=== PATIENT | female | born 1960 | race Caucasian/White ===

== ENCOUNTER 2020-03-29 09:28 | Emergency (ER) | payer MEDICARE, OTHER ==
[~2020-03-29] VITALS: Ht 147.3 cm; Wt 77.3 kg
[~2020-03-29 09:28] MED LIST: ACET65TA; ADVAIR; ALBUTEROL INH; ALBUTEROL LIQ NEB; ALLO300T; ALLO300T OR; AMIT10TA2; AMIT10TA2 OR; AMIT50TA2 OR; ATRO1SOL13 INH; CLARINEX; CLARINEX OR; COLA100C2; COLA100C2 OR; COMBVENT; CRES20TA; CRES20TA OR; DARV100T; DEMA10TA OR; Enbrel SC; FLEXERIL; FLEXERIL PO; Fleet Enema PR; HYDR4TAB; HYDR4TAB OR; LEVA500T OR; LEVO100T OR; LEVO150T OR; LEVO25TA2; LEVO2TA; LEVO2TA OR; LYRI75CA OR; Lortab PO; MAGN500T2; METO5TAB2; MILKSUS OR; MORP20SO OR; MORP30SU OR; MORPHINE PUMP SC; MS C15TA5; MS C30TA2; MS C30TA2 OR; NEUR100C OR; NEUR300C; NEUR300C OR; NITR0.4S SL; OMEP20TA7 OR; OXYGEN; PERC5TAB8 OR; PERC7.5T8 PO; POTA20TA2 OR; PRED10TA2 OR; PRED20TA OR; PROT1TAB2; PROT1TAB2 OR; SING10TA31; SING10TA31 OR; SPIR1CAP; SYMB80AE IN; SYMB80AE INH; SYNT125T; TIZA4TAB; TIZA4TAB OR; TRAM50TA2 OR; TUMS500C OR; VIBR100C OR; VICO5TAB; VICO5TAB OR; VIT D 2000; VIT D 2000 OR; VITAMIN D; ZETI10TA; ZETI10TA OR
[2020-03-29] MEDS ORDERED: HYDR4TAB PO (09:36)
[2020-03-29] MEDS ORDERED: OXYC-141 (09:36)
[2020-03-29 10:28] LABS: BASO # 0.1 10^3/uL (0.0-0.2); BASO % 1.1 % (0.0-1.0); EOS # 0.6 10^3/uL (0.0-0.5); EOS % 6.6 % (0.0-3.0); HEMATOCRIT 44.3 % (36.0-47.0); LYMPH # 2.5 10^3/uL (1.5-5.0); LYMPH % 28.2 % (24.0-44.0); MEAN CORPUSCULAR HGB CONC 31.6 g/dl (32.0-36.5); MEAN CORPUSCULAR VOLUME 101.4 fl (80.0-96.0); MONO # 0.5 10^3/uL (0.0-0.8); MONO % 5.4 % (0.0-5.0); NEUTROPHILS # 5.2 10^3/uL (1.5-8.5); NEUTROPHILS % 58.4 % (36.0-66.0); PLATELET COUNT, AUTOMATED 320 10^3/uL (150-450); RED BLOOD COUNT 4.37 10^6/uL (4.00-5.40); WHITE BLOOD COUNT 8.9 10^3/uL (4.0-10.0)
[2020-03-29 10:58] LABS: ERYTHROCYTE SEDIMENTATION RATE 21 mm/hr (0-30)
--- NOTE | 2020-03-29 11:50 | REP ---
CT LUMBAR SPINE WITHOUT CONTRAST: HISTORY: Moderate to severe vertebral tenderness. History of ankylosing spondylitis. CT FINDINGS: Lumbar vertebral body heights are preserved. Alignment is normal. No fracture or collapse is seen. Pedicles, posterior elements and transverse process sees appear intact. There are mild degenerative spondylosis changes. No sacral fracture is seen. There are retroperitoneal surgical clips post right nephrectomy. The gallbladder is surgically absent as well. Vascular calcification is seen in a normal caliber aorta. IMPRESSION: No fracture seen. Mild degenerative changes. Vascular calcification. Post right nephrectomy and cholecystectomy. Electronically Signed by Alphonse Pablo MD 03/29/2020 02:56 P
[2020-03-29 12:15] VITALS: BP 117/56
== END 2020-03-29 12:17 | disposition home or self-care (01) ==
LOC: M ED 09:28
DX: M47.816 Spondylosis without myelopathy or radiculopathy, lumbar region (principal); M51.36 Other intervertebral disc degeneration, lumbar region; K58.9 Irritable bowel syndrome, unspecified; I10 Essential (primary) hypertension; E78.5 Hyperlipidemia, unspecified; J44.9 Chronic obstructive pulmonary disease, unspecified; Z79.01 Long term (current) use of anticoagulants; Z79.51 Long term (current) use of inhaled steroids; Z79.891 Long term (current) use of opiate analgesic; Z79.899 Other long term (current) drug therapy; Z86.79 Personal history of other diseases of the circulatory system; Z88.6 Allergy status to analgesic agent; Z88.8 Allergy status to other drugs, medicaments and biological substances; Z90.5 Acquired absence of kidney; Z91.048 Other nonmedicinal substance allergy status

== ENCOUNTER 2020-04-01 08:37 | Emergency (ER) | payer MEDICARE, OTHER ==
[~2020-04-01] VITALS: Ht 147.3 cm; Wt 77.3 kg
[2020-04-01 08:37] VITALS: BP 133/62
[~2020-04-01 08:37] MED LIST changes: +HYDR4TAB PO; +OXYC-141
[2020-04-01] MEDS ORDERED: OMEP-221 (08:49)
[2020-04-01] MEDS ORDERED: COSE1INJ3 (08:49)
[2020-04-01] MEDS ORDERED: LEVO100T5 (08:49)
[2020-04-01] MEDS ORDERED: GABA600T4 (08:49)
[2020-04-01] MEDS ORDERED: ATOR1TAB19 (08:49)
[2020-04-01] MEDS ORDERED: HYDROmorphone 2 MG TAB PO ONE (10:00)
--- NOTE | 2020-04-01 14:47 | REP ---
MRI LUMBAR SPINE: 04/01/2020 INDICATION: Lumbar radiculopathy. COMPARISON: 05/25/2010. FINDINGS: Vertebral body alignment is anatomic. Mild disc desiccation is present throughout most pronounced at L5-S1. Focal fatty marrow versus interosseous hemangioma is noted at L1. The visualized cord is unremarkable. No significant paraspinal soft tissue abnormalities are present. Mild diffuse disc bulging is present at multiple levels most pronounced at L4-5 and L5-S1. No focal disc herniations are present. There are no areas of significant spinal canal/neural foraminal narrowing. IMPRESSION: No focal disc herniations or areas of significant spinal canal/neural foraminal narrowing. Unreviewed
== END 2020-04-01 13:00 | disposition left against medical advice (07) ==
LOC: M ED 08:37
DX: M79.605 Pain in left leg (principal); Z53.20 Procedure and treatment not carried out because of patient's decision for unspecified reasons

== ENCOUNTER → 2020-08-10 | Outpatient (CLI) | payer MEDICARE ==
[~2020-08-10] MED LIST changes: +ATOR1TAB19; +COSE1INJ3; +GABA600T4; +LEVO100T5; +OMEP-221
--- NOTE | 2020-08-14 01:27 | ECWPNPC ---
PATIENT NAME: JOANNE REYES : 1960 GENDER: FEMALE VISIT DATE: 08/10/2020 DISCHARGE DATE: 08/10/20 09 VISIT LOCKED DATE TIME: PHYSICIAN: BERNY TORRES RESOURCE: BERNY TORRES REASON FOR APPOINTMENT 1. BACK/FIBROMYALGIA HISTORY OF PRESENT ILLNESS DEPRESSION SCREENING: PHQ-2 (2015 EDITION) LITTLE INTEREST OR PLEASURE IN DOING THINGS?NOT AT ALL FEELING DOWN, DEPRESSED, OR HOPELESS?NOT AT ALL TOTAL SCORE0 GENERAL: 60-YEAR-OLD FEMALE REFERRED BY [facility] TO EVALUATE FOR CHRONIC LOW BACK PAIN AND LEFT LEG PAIN WITH HISTORY OF MULTIPLE COMORBIDITIES REQUIRING CHRONIC OPIOID THERAPY. SHE CURRENTLY IS FOLLOWING WITH PAIN MANAGEMENT IN [place]. SHE HAS RELOCATED TO [place] AND WOULD LIKE TO FIND MANAGEMENT OF HER PAIN MEDICATIONS CLOSE TO HOME. SHE IS WHEELCHAIR DEPENDENT. SHE IS STATUS POST RIGHT BKA. HAS BEEN ON CHRONIC NARCOTIC PAIN MEDICATIONS FOR SEVERAL YEARS. FINDS CURRENT MEDICATIONS SOMEWHAT EFFECTIVE AT REDUCING PAIN. STATES PRIMARY CARE PROVIDER RECENTLY LOWERED GABAPENTIN DOSAGE FROM 900 MG THREE TIMES A DAY TO 300 MG 3 TIMES A DAY AND SHE IS EXPERIENCING INCREASE IN SHOOTING PAIN IN HER LEFT LEG AND INCREASE IN PHANTOM PAIN IN HER RIGHT STUMP. SHE HAS AN APPOINTMENT TO ESTABLISH CARE WITH PRIMARY CARE LOCALLY IN A FEW WEEKS. I'VE INFORMED HER THAT WE ARE WILLING TO HELP WITH MEDICATION MANAGEMENT LONG HER PRIMARY CARE IS AWARE OF THE SITUATION AND WILLING TO WORK WITH US. SHE WILL TAKE A FORM TO HER PRIMARY CARE APPOINTMENT AT [facility] TO HAVE THEM EVALUATE AND FILL OUT. SHE IS AT HIGH RISK FOR INFECTION WITH HISTORY OF MULTIPLE EPISODES OF SEPSIS WITH HARDWARE FOR KNEE REPLACEMENTS. I FEEL THAT SHE WOULD BE A MEDICATION MANAGEMENT ONLY PATIENT. DENIES BOWEL OR BLADDER INCONTINENCE. DENIES UNSTABLE MEDICAL ISSUES AT THIS POINT.- - -. FALL RISK SCREENING: SCREENING :NO FALLS REPORTED IN THE LAST YEAR 6-8 FALLS PAIN SCREENING: PATIENT HAS A COMPLAINT OF ACUTE OR CHRONIC PAIN :YES LOCATION OF PAIN:LOW BACK, KNEES INTENSITY OF PAIN (SCALE OF 1 TO 10):8 WHAT DOES YOUR PAIN FEEL LIKE:SHARP DURATION:CONTINOUS PAIN IS INCREASED BY:ACTIVITIES PAIN IS DECREASED BY:USE OF PAIN MEDICATIONS HELPS SOME WITH THE PAIN NURSING NOTE: - - -. PAIN CENTER INTAKE QUESTIONS: DO YOU HAVE A HISTORY OF MRSA? :NO 10 YEARS PLUS DO YOU TAKE A BLOOD THINNERS? :NO DO YOU HAVE ANY BLEEDING DISORDERS? :NO ANY NEW NUMBNESS OR WEAKNESS IN YOUR LEGS OR ARMS? :NO ANY PACEMAKER,DEFIBRILLATOR, OR DORSAL COLUMN STIMULATOR? :NO DO YOU HAVE ANY RASHES OR OPEN SORES? :NO ARE YOU ALLERGIC TO IV DYE? :NO ARE YOU DIABETIC? :NO BORDERLINE ANY NEW PROBLEMS WITH YOUR MEDICATIONS? :NO HAVE YOU RECEIVED A VACCINE IN THE PAST 30 DAYS? :NO DO YOU PLAN TO RECEIVE A VACCINE IN THE NEXT 21 DAYS? :NO DO YOU NEED ANY PRESCRIPTION? :NO DO YOU TAKE ANY IMMUNOSUPPRESSIVE MEDICATIONS? :YES CURRENT MEDICATIONS TAKING GABAPENTIN 600 MG TABLET 1 TABLET ORALLY ONCE A DAY TAKING ATORVASTATIN CALCIUM 10 MG TABLET 1 TABLET ORALLY ONCE A DAY TAKING COSENTYX (300 MG DOSE) 150 MG/ML SOLUTION PREFILLED SYRINGE DIRECTED SUBCUTANEOUS TAKING NITROFURANTOIN MACROCRYSTAL 50 MG CAPSULE 1 CAPSULE AT BEDTIME WITH FOOD OR MILK ORALLY ONCE A DAY TAKING OMEPRAZOLE 40 MG CAPSULE DELAYED RELEASE 1 CAPSULE 30 MINUTES BEFORE MORNING MEAL ORALLY ONCE A DAY TAKING ALBUTEROL SULFATE (2.5 MG/3ML) 0.083% NEBULIZATION SOLUTION 3 ML NEEDED INHALATION EVERY 6 HRS TAKING PROLIA 60MG INJECTION TAKING VITAMIN D3 SUPER STRENGTH 50 MCG (2000 UT) TABLET 1 TABLET ORALLY ONCE A DAY TAKING OXYCONTIN 10 MG TABLET ER 12 HOUR ABUSE-DETERRENT 1 TABLET ORALLY EVERY 12 HRS TAKING CHANTIX 1 TAB ORAL TAKING SYNTHROID 100 MCG TABLET 1 TABLET IN THE MORNING ON AN EMPTY STOMACH ORALLY ONCE A DAY MEDICATION LIST REVIEWED AND RECONCILED WITH THE PATIENT PAST MEDICAL HISTORY UTI SKIN CANCER ON FACE COPD HEART MURMER ALLERGIES BAND-AID SURGICAL HISTORY APENDIX RIGHT KIDNEY REMOVED RIGHT LEG REMOVED GAULBLADDER REMOVED KNEE REPLACMENT IN RIGHT LEG X2 FAMILY HISTORY FATHER: ALIVE 85 YRS MOTHER: ALIVE 80 YRS 1 BROTHER(S) , 1 SISTER(S) - HEALTHY. SOCIAL HISTORY GENERAL: TOBACCO USE ARE YOU A:FORMER SMOKER HOW LONG HAS IT BEEN SINCE YOU LAST SMOKED? A WEEK AGO ALCOHOL SCREENING DID YOU HAVE A DRINK CONTAINING ALCOHOL IN THE PAST YEAR?NO POINTS0 INTERPRETATIONNEGATIVE RECREATIONAL DRUG USE DRUG USE?NO CAFFEINE CAFFEINE USE? NONE LEARNING BARRIERS / SPECIAL NEEDS HEARING IMPAIRED?YES SOME HEARING LOSS VISION IMPAIRED?YES GLASSES MARITAL STATUS: .. PAIN CLINIC PFS, CLERGY, PUBLIC HEALTH REFERRALS HAS THE PATIENT BEEN EDUCATED REGARDING HIS/HER PLAN OF CARE?YES HAS THE PATIENT BEEN EDUCATED REGARDING PAIN, THE RISK FOR PAIN, THE IMPORTANCE OF EFFECTIVE PAIN MANAGEMENT, AND THE PAIN ASSESSMENT PROCESS?YES HOSPITALIZATION/MAJOR DIAGNOSTIC PROCEDURE DENIES PAST HOSPITALIZATION REVIEW OF SYSTEMS CONSTITUTIONAL: ANY RECENT FEVER NO . CHILLS NO . WEIGHT CHANGE OF UNKNOWN REASONS NO . GASTROENTEROLOGY: NEW UNEXPLAINABLE CHANGES IN BOWEL CONTROL NO . CONSTIPATION NO . GENITOURINARY: ANY NEW CHANGE IN BLADDER CONTROL? NO . NEUROLOGY: NEW ONSET DIZZINESS OR NEUROLOGICAL CHANGES NOT MENTIONED NO . NEW NUMBNESS OR PAIN PATTERNS NOT MENTIONED AND PERTINENT TO TODAY'S VISIT NO . CARDIOLOGY: NEW CHEST PRESSURE NO . NEW CHEST PAIN NO . RESPIRATORY: UNEXPLAINABLE COUGH NO . NEW SHORTNESS OF BREATH NO . VITAL SIGNS WT 168 LBS, HT 45 IN, BMI 58.32 INDEX, BP 121/64 MM HG, HR 51 /MIN, RR 18 /MIN, TEMP 96.9 F, OXYGEN SAT % 94%, SAFE IN ENV? (Y/N) YES, NA INITIALS AW 0829, REVIEWED BY: LEXIS. EXAMINATION GENERAL EXAMINATION: GENERALNO ACUTE DISTRESS, WELL NOURISHED AND HYDRATED, WHEELCHAIR DEPENDENT. PSYCHAPPROPRIATE MOOD AND AFFECT . HEENT:EOMI, NO SCLERAL ICTERUS,. FACE:UNREMARKABLE. LUNGS:CLEAR TO AUSCULTATION BILATERALLY, NO WHEEZES, RHONCHI, RALES. HEART:NO MURMURS, REGULAR RATE AND RHYTHM. BACK:TENDERNESS TO LIGHT TOUCH ACROSS LOWER BACK. . ASSESSMENTS CHRONIC PRESCRIPTION OPIATE USE - Z79.891 (PRIMARY) SACROILIITIS - M46.1 AVASCULAR NECROSIS - M87.00 TREATMENT CHRONIC PRESCRIPTION OPIATE USE NOTES: PATIENT WILL BRING / OPIOID AGREEMENT FORM TO PRIMARY CARE PROVIDER AT [facility] . PATIENT WOULD BE A MEDICATION MANAGEMENT ONLY PATIENT. SHE IS ON CHRONIC OPIOID THERAPY FOR YEARS AND IS HIGH RISK FOR INFECTION AND INJECTION THERAPY WOULD NOT BE RECOMMENDED. APPEARS STABLE ON CURRENT MEDICATIONS ALTHOUGH SHE MAY BE TOLERANT AND WOULD BE WILLING TO TRY DIFFERENT MEDICATIONS. PROCEDURE CODES FA211 ESTABILISHED PATIENT [facility] FACILITY CHARGE DISPOSITION & COMMUNICATION FOLLOW UP 6 WEEKS (REASON: FOLLOW-UP MEDICATION MANAGEMENT EVALUATE PRIMARY CARE RESPONSE TO / AGREEMENT FOR OPIOIDS) ELECTRONICALLY SIGNED BY MARK OCASIO ON 08/13/2020 AT 03:57 PM EDT DISCLAIMER : THIS IS A VISIT SUMMARY EXTRACTED FROM THE [email or web address] CHART. IT IS NOT A COPY OF THE [email or web address] PROGRESS NOTE. MTDD
== END ==
LOC: M PAIN 08:30
PROVIDERS: ATTEND Nurse Practitioner Family
DX: M46.1 Sacroiliitis, not elsewhere classified (principal); M87.00 Idiopathic aseptic necrosis of unspecified bone; Z99.3 Dependence on wheelchair; Z89.611 Acquired absence of right leg above knee; J44.9 Chronic obstructive pulmonary disease, unspecified; R01.1 Cardiac murmur, unspecified; Z85.828 Personal history of other malignant neoplasm of skin; Z79.891 Long term (current) use of opiate analgesic; Z79.899 Other long term (current) drug therapy; Z87.891 Personal history of nicotine dependence; Z91.048 Other nonmedicinal substance allergy status

== ENCOUNTER → 2020-08-13 | Outpatient (REF) | payer MEDICARE ==
[2020-08-13 19:03] LABS: APPEARANCE, URINE MANUAL TURBID (CLEAR); COLOR, URINE MANUAL BROWN (YELLOW)
[2020-08-13 19:04] LABS: GLUCOSE, URINE (UA) MANUAL NEGATIVE (NEGATIVE); PROTEIN, URINE MANUAL OBSCURED mg/dL (NEGATIVE)
[2020-08-13 19:05] LABS: BILIRUBIN, URINE MANUAL OBSCURED (NEGATIVE); BLOOD URINE MANUAL NEGATIVE (NEGATIVE); KETONE, URINE MANUAL OBSCURED mg/dL (NEGATIVE); LEUKOCYTE ESTERASE, URINE MAN OBSCURED (NEGATIVE); NITRITE, URINE MANUAL OBSCURED (NEGATIVE); UROBILINOGEN, URINE MANUAL OBSCURED mg/dl (NORMAL)
[2020-08-13 19:16] LABS: WBC, URINE TNTC /hpf (0-3)
[2020-08-13 19:18] LABS: SQUAMOUS EPITHELIAL CELL URINE SMALL AMOUNT /hpf (SMALL AMT)
[2020-08-13 19:19] LABS: HYALINE CAST, URINE NONE SEEN /lpf (0-1)
[2020-08-13 19:20] LABS: BACTERIA, URINE NONE SEEN; MUCUS, URINE SMALL AMOUNT (NEGATIVE)
== END ==
LOC: M LAB REF 16:41
PROVIDERS: ATTEND Family Medicine
DX: R31.9 Hematuria, unspecified (principal)

== ENCOUNTER → 2020-09-28 | Outpatient (REF) | payer MEDICARE, MEDICAID ==
[2020-09-28 15:26] LABS: HEMATOCRIT 46.3 % (36.0-47.0); HEMOGLOBIN 14.5 g/dl (12.0-15.5); MEAN CORPUSCULAR HGB CONC 31.3 g/dl (32.0-36.5); MEAN CORPUSCULAR VOLUME 99.1 fl (80.0-96.0); PLATELET COUNT, AUTOMATED 313 10^3/uL (150-450); RED BLOOD COUNT 4.67 10^6/uL (4.00-5.40)
[2020-09-28 15:28] LABS: APPEARANCE, URINE HAZY (CLEAR); BACTERIA, URINE AUTO 1+ (NEGATIVE); BILIRUBIN, URINE AUTO NEGATIVE (NEGATIVE); BLOOD, URINE BLOOD NEGATIVE (NEGATIVE); COLOR, URINE YELLOW (YELLOW); GLUCOSE, URINE (UA) AUTO NEGATIVE (NEGATIVE); KETONE, URINE AUTO NEGATIVE (NEGATIVE); LEUKOCYTE ESTERASE, URINE AUTO NEGATIVE (NEGATIVE); MUCUS, URINE SMALL (NEGATIVE); NITRITE, URINE AUTO NEGATIVE (NEGATIVE); PROTEIN, URINE AUTO NEGATIVE (NEGATIVE); RBC, URINE AUTO 1 /HPF (0-3); SPECIFIC GRAVITY URINE AUTO 1.024 (1.002-1.035); SQUAMOUS EPITHELIAL CELL UR AU 1 /HPF (0-6); WBC, URINE AUTO 1 /HPF (0-3)
[2020-09-28 16:04] LABS: ALBUMIN 3.7 GM/DL (3.2-5.2); ALT/SGPT 17 U/L (12-78); BILIRUBIN,TOTAL 0.3 MG/DL (0.2-1.0); BLOOD UREA NITROGEN 11 MG/DL (7-18); CALCIUM LEVEL 8.8 MG/DL (8.5-10.1); CARBON DIOXIDE LEVEL 31 MEQ/L (21-32); CHLORIDE LEVEL 108 MEQ/L (98-107); CHOLESTEROL LEVEL 302 MG/DL (<200); CHOLESTEROL RISK RATIO 6.711 (<5); CREATININE FOR GFR 0.92 MG/DL (0.55-1.30); FREE T4 0.63 NG/DL (0.76-1.46); GLOMERULAR FILTRATION RATE > 60.0 (>51); GLUCOSE, FASTING 90 MG/DL (70-100); HDL CHOLESTEROL 45 MG/DL (>40); NON-HDL-C 257 MG/DL; POTASSIUM SERUM 4.8 MEQ/L (3.5-5.1); SODIUM LEVEL 139 MEQ/L (136-145); TOTAL PROTEIN 7.1 GM/DL (6.4-8.2); TRIGLYCERIDES LEVEL 521 MG/DL (<150)
[2020-09-28 16:07] LABS: TOTAL 25(OH) VITAMIN D 8.2 NG/ML (30.0-100.0); VITAMIN B12 LEVEL 410 PG/ML
[2020-09-28 17:01] LABS: HEMOGLOBIN A1c 5.5 %
== END ==
LOC: M SFHCPLAZ 12:42
PROVIDERS: ATTEND Physician Assistant
DX: J44.9 Chronic obstructive pulmonary disease, unspecified (principal); N18.30 Chronic kidney disease, stage 3 unspecified; R73.03 Prediabetes; R39.198 Other difficulties with micturition; R10.9 Unspecified abdominal pain; E78.2 Mixed hyperlipidemia; E53.8 Deficiency of other specified B group vitamins; E03.9 Hypothyroidism, unspecified; E55.9 Vitamin D deficiency, unspecified

== ENCOUNTER → 2020-09-28 | Outpatient (CLI) | payer MEDICARE, MEDICAID ==
--- NOTE | 2020-09-28 14:07 | REP ---
INDICATION: R10.9 ACUTE LT FLANK PAIN,R39.198 DIFFICULTY IN URINATION. COMPARISON: Abdomen and pelvis CT dated 05/19/2010. TECHNIQUE: Renal ultrasound. FINDINGS: There is a right nephrectomy for reasons not elaborated on the request more the technologist's note. The left kidney is normal size measuring 11.6 x 3.8 x 5.3 cm. There is no left renal hydronephrosis. There is no left renal calculus. There is no left renal solid mass. There is a left renal upper pole Bosniak type 1 cyst measuring 1.1 x 0.9 x 0.9 cm. Bladder: The bladder is moderately distended. With color Doppler assessment we are unable to identify a left ureteral jet into the bladder. However, there is no hydronephrosis. This may be from dehydration. IMPRESSION: Bosniak type 1 left renal upper pole 1.1 cm cyst. No hydronephrosis or calculus. No solid mass. Right nephrectomy. <Electronically signed by Allen Torres > 09/28/20 [id number]
== END ==
LOC: M WHC 12:19
PROVIDERS: ATTEND Physician Assistant
DX: N28.1 Cyst of kidney, acquired (principal); R39.198 Other difficulties with micturition; R10.9 Unspecified abdominal pain; J44.9 Chronic obstructive pulmonary disease, unspecified; N18.30 Chronic kidney disease, stage 3 unspecified; R73.03 Prediabetes; E78.2 Mixed hyperlipidemia; E53.8 Deficiency of other specified B group vitamins; E03.9 Hypothyroidism, unspecified; E55.9 Vitamin D deficiency, unspecified
CPT/HCPCS: 36415; 76775; 80053; 80061; 81001; 82306; 82607; 82746; 83036; 84439; 84443; 85027; 87086; G0463

== ENCOUNTER → 2020-09-30 | Outpatient (CLI) | payer MEDICARE, MEDICAID ==
--- NOTE | 2020-10-03 23:20 | ECWPNPC ---
PATIENT NAME: JOANNE REYES : 1960 GENDER: FEMALE VISIT DATE: 09/30/2020 DISCHARGE DATE: 09/30/20 1417 VISIT LOCKED DATE TIME: PHYSICIAN: BERNY TORRES PHYSICIAN PAGER NO: ACTIVE RESOURCE: BERNY TORRES REASON FOR APPOINTMENT 1. BACK/FIBROMYALGIA HISTORY OF PRESENT ILLNESS GENERAL: PATIENT IS HERE FOR A FOLLOW-UP AFTER INITIAL EVALUATION. SUFFERS FROM PERSISTENT PHANTOM LIMB PAIN AND CHRONIC LOW BACK PAIN. SHE IS NOT A CANDIDATE FOR INTERVENTIONAL THERAPY. SHE SPOKE WITH HER PRIMARY CARE PROVIDER TO ESTABLISH AAGREEMENT THAT WE WOULD BE WILLING TO PRESCRIBE HER CHRONIC NARCOTIC PAIN MEDICATIONS UNTIL WE FEEL THOUGH HER MEDICATION IS OPTIMIZED AND AT THAT POINT SHE WOULD RETURN FOR CONTINUED CARE THROUGH PRIMARY CARE. PATIENT STATES HER PRIMARY CARE DOCTOR WHO IS IN THE [facility] WAS WILLING TO SIGN THE FORM. WE DON'T HAVE THE FORM TO REVIEW BUT WILL ATTEMPT TO GET THAT TODAY. CURRENTLY USING OXYCONTIN 10 MG TWICE A DAY AND HYDROMORPHONE 4 MG 1 TABLET EVERY 6 HOURS NEEDED FOR SEVERE PAIN EPISODES. FINDS THIS MEDICATION SOMEWHAT HELPFUL AT REDUCING PAIN AND KEEPING HER FUNCTIONAL. DENIES ADVERSE EFFECTS WITH MEDICATIONS. HAS BEEN ON THIS DOSAGE FOR SEVERAL YEARS FOR CHRONIC PAIN. -. FALL RISK SCREENING: SCREENING :TWO OR MORE FALLS WITHOUT INJURY IN THE PAST YEAR PAIN SCREENING: PATIENT HAS A COMPLAINT OF ACUTE OR CHRONIC PAIN :YES LOCATION OF PAIN:BOTH SHOULDERS, LOW BACK, LEFT HIP, RIGHT HIP, KNEES LEFT KNEE INTENSITY OF PAIN (SCALE OF 1 TO 10):8 WHAT DOES YOUR PAIN FEEL LIKE:BURNING, CONTINOUS, SHARP, TENDER, THROBBING, SORE DURATION:CONTINOUS PAIN IS INCREASED BY:ACTIVITIES PAIN IS DECREASED BY:USE OF PAIN MEDICATIONS, OTHERS HEAT NURSING NOTE: -. PAIN CENTER INTAKE QUESTIONS: DO YOU HAVE A HISTORY OF MRSA? :YES URINE DO YOU TAKE A BLOOD THINNERS? :NO DO YOU HAVE ANY BLEEDING DISORDERS? :NO ANY NEW NUMBNESS OR WEAKNESS IN YOUR LEGS OR ARMS? :NO ANY PACEMAKER,DEFIBRILLATOR, OR DORSAL COLUMN STIMULATOR? :NO DO YOU HAVE ANY RASHES OR OPEN SORES? :YES SCABBED AREAS RIGHT UPPER ARM ARE YOU ALLERGIC TO IV DYE? :NO ARE YOU DIABETIC? :YES DIET CONTROLLED ANY NEW PROBLEMS WITH YOUR MEDICATIONS? :NO HAVE YOU RECEIVED A VACCINE IN THE PAST 30 DAYS? :NO DO YOU PLAN TO RECEIVE A VACCINE IN THE NEXT 21 DAYS? :NO DO YOU NEED ANY PRESCRIPTION? :YES NEURONTIN DO YOU TAKE ANY IMMUNOSUPPRESSIVE MEDICATIONS? :YES COSENTYX IS THERE A CHANCE YOU COULD BE ? :NO ARE YOU BREAST FEEDING? :NO CURRENT MEDICATIONS UNKNOWN GABAPENTIN 600 MG TABLET 1 TABLET ORALLY THREE TIMES DAILY UNKNOWN ATORVASTATIN CALCIUM 10 MG TABLET 1 TABLET ORALLY ONCE A DAY UNKNOWN COSENTYX (300 MG DOSE) 150 MG/ML SOLUTION PREFILLED SYRINGE DIRECTED SUBCUTANEOUS MONTHLY UNKNOWN NITROFURANTOIN MACROCRYSTAL 50 MG CAPSULE 1 CAPSULE AT BEDTIME WITH FOOD OR MILK ORALLY ONCE A DAY UNKNOWN OMEPRAZOLE 40 MG CAPSULE DELAYED RELEASE 1 CAPSULE 30 MINUTES BEFORE MORNING MEAL ORALLY ONCE A DAY UNKNOWN ALBUTEROL SULFATE (2.5 MG/3ML) 0.083% NEBULIZATION SOLUTION 3 ML NEEDED INHALATION EVERY 6 HRS UNKNOWN PROLIA 60MG INJECTION EVERY 6 MONTHS UNKNOWN VITAMIN D3 SUPER STRENGTH 50 MCG (2000 UT) TABLET 1 TABLET ORALLY ONCE A DAY UNKNOWN OXYCONTIN 10 MG TABLET ER 12 HOUR ABUSE-DETERRENT 1 TABLET ORALLY EVERY 12 HRS UNKNOWN CHANTIX 1 TAB ORAL BID UNKNOWN SYNTHROID 100 MCG TABLET 1 TABLET IN THE MORNING ON AN EMPTY STOMACH ORALLY ONCE A DAY, NOTES: TAKES 4 DAYS A WEEK MEDICATION LIST REVIEWED AND RECONCILED WITH THE PATIENT PAST MEDICAL HISTORY UTI- CHRONIC, ON DAILY ABX SKIN CANCER ON FACE- BCC COPD HEART MURMUR CKD STAGE II PREDIABETES HYPOTHYROIDISM NICOLE ON CPAP RIGHT ABOVE THE KNEE AMPUTATION DEXA- 04/2018 S/P RIGHT KIDNEY REMOVAL ALLERGIES BAND-AID SURGICAL HISTORY APENDIX RIGHT KIDNEY REMOVED RIGHT LEG REMOVED GAULBLADDER REMOVED KNEE REPLACMENT IN RIGHT LEG X2 FAMILY HISTORY FATHER: ALIVE 85 YRS MOTHER: ALIVE 80 YRS 1 BROTHER(S) , 1 SISTER(S) - HEALTHY. SOCIAL HISTORY GENERAL: TOBACCO USE ARE YOU A:FORMER SMOKER OCCASIONAL CIGARETTE HOW LONG HAS IT BEEN SINCE YOU LAST SMOKED? A WEEK AGO LATEX QUESTIONNAIRE LATEX ALLERGY : HAVE YOU EVER DEVELOPED ANY TYPE OF REACTION AFTER HANDLING LATEX PRODUCTS SUCH RUBBER GLOVES, CONDOMS, DIAPHRAGMS, BALLOONS, SOCKS, OR UNDERWEAR?NO LATEX ALLERGY : HAVE YOU EVER DEVELOPED ANY TYPE OF REACTION DURING OR AFTER DENTAL APPOINTMENT, VAGINAL/RECTAL EXAMINATION, SURGICAL PROCEDURE, OR ANY OTHER EXPOSURE?NO LATEX RISK : HAVE YOU EVER HAD ANY DIFFICULTY BREATHING OR HIVES AFTER EATING OR HANDLING ANY FRUITS, OR VEGETABLES; SUCH KIWI, BANANAS, STONE FRUITS, OR CHESTNUTSNO LATEX RISK : DO YOU HAVE A PREVIOUS PERSONAL HISTORY OF MORE THAN NINE SURGERIES, SPINA BIFIDA, OR REPEATED CATHERIZATIONS? NO LATEX RISK : ARE YOU FREQUENTLY EXPOSED TO LATEX PRODUCTS IN YOUR OCCUPATION?NO DATE ASKED : 09/30/2020 ALCOHOL SCREENING DID YOU HAVE A DRINK CONTAINING ALCOHOL IN THE PAST YEAR?NO POINTS0 INTERPRETATIONNEGATIVE RECREATIONAL DRUG USE DRUG USE?NO CAFFEINE CAFFEINE USE? NONE LANGUAGE LANGUAGES SPOKEN:IRISH EDUCATION LEVEL OF EDUCATION:NOT FINISHED COLLEGE LEARNING BARRIERS / SPECIAL NEEDS HEARING IMPAIRED?YES SOME HEARING LOSS VISION IMPAIRED?YES GLASSES SPECIAL DEVICES?YES :WHEELCHAIR HISTORY OF RIGHT BKA OCCUPATION: UNEMPLOYED. DIET: REGULAR. EXERCISE: NO REGULAR EXERCISE. MARITAL STATUS: .. PAIN CLINIC PFS, CLERGY, PUBLIC HEALTH REFERRALS HAS THE PATIENT BEEN EDUCATED REGARDING HIS/HER PLAN OF CARE?YES HAS THE PATIENT BEEN EDUCATED REGARDING PAIN, THE RISK FOR PAIN, THE IMPORTANCE OF EFFECTIVE PAIN MANAGEMENT, AND THE PAIN ASSESSMENT PROCESS?YES ADVANCE DIRECTIVE ADVANCE DIRECTIVE DISCUSSED WITH PATIENT:YES DAUGHTER LAURA REYES AND GIAN STEWART HOSPITALIZATION/MAJOR DIAGNOSTIC PROCEDURE NO HOSPITALIZATION HISTORY. REVIEW OF SYSTEMS CONSTITUTIONAL: ANY RECENT FEVER NO . CHILLS NO . WEIGHT CHANGE OF UNKNOWN REASONS NO . GASTROENTEROLOGY: NEW UNEXPLAINABLE CHANGES IN BOWEL CONTROL NO . CONSTIPATION NO . GENITOURINARY: ANY NEW CHANGE IN BLADDER CONTROL? NO . NEUROLOGY: NEW ONSET DIZZINESS OR NEUROLOGICAL CHANGES NOT MENTIONED NO . NEW NUMBNESS OR PAIN PATTERNS NOT MENTIONED AND PERTINENT TO TODAY'S VISIT NO . CARDIOLOGY: NEW CHEST PRESSURE NO . NEW CHEST PAIN NO . RESPIRATORY: UNEXPLAINABLE COUGH NO . NEW SHORTNESS OF BREATH NO . VITAL SIGNS WT 160 LBS, HT 45 IN, BMI 55.55 INDEX, BP 120/59 MM HG, HR 58 /MIN, RR 18 /MIN, TEMP 97.6 F, OXYGEN SAT % 95%, SAFE IN ENV? (Y/N) YES, NA INITIALS SC 13:21, REVIEWED BY: KENDRICK RN. EXAMINATION GENERAL EXAMINATION: GENERALAWAKE,ALERT ,PLEASANT . PSYCHAFFECT NORMAL . LUNGS:LUNG WILLIS ARE CLEAR TO AUSCULTATION BILATERALLY. GOOD MOVEMENT OF AIR . HEART:S1, S2 IN A REGULAR RATE AND RHYTHM. NO SIGNIFICANT MURMURS, RUBS OR GALLOPS NOTED . ASSESSMENTS CHRONIC PRESCRIPTION OPIATE USE - Z79.891 (PRIMARY) SACROILIITIS - M46.1 AVASCULAR NECROSIS - M87.00 TREATMENT CHRONIC PRESCRIPTION OPIATE USE REFILL GABAPENTIN CAPSULE, 300 MG, 1 TABLET, ORALLY, THREE TIMES DAILY, 30 DAYS, 90, REFILLS 2 NOTES: NARCOTIC AGREEMENT AND CLINIC POLICY IS REVIEWED. PATIENT AGREES TO COMPLY AND HAS SIGNED A NARCOTIC AGREEMENT WITH US. WE WILL ATTEMPT TO RETRIEVE / AGREEMENT WITH PRIMARY CARE. PATIENT WILL CALL US WHEN SHE HAS 3 OR 4 DAYS LEFT OF HER OXYCONTIN 10 MG TWICE A DAY AND DILAUDID 4 MG EVERY 6 HOURS FOR CHRONIC PAIN. AT THAT POINT WE WILL SEND IN A REFILL. I SENT IN REFILL OF GABAPENTIN 300 MG 3 TIMES A DAY WITH 2 REFILLS. FOLLOW-UP IS SCHEDULED AT PAIN CLINIC IN 2 MONTHS. PROCEDURE CODES FA211 ESTABILISHED PATIENT [facility] CHARGE DISPOSITION & COMMUNICATION FOLLOW UP 2 MONTHS (REASON: MEDICATION MANAGEMENT/URINE TOX) ELECTRONICALLY SIGNED BY MARK OCASIO ON 10/03/2020 AT 04:11 PM EST DISCLAIMER : THIS IS A VISIT SUMMARY EXTRACTED FROM THE [employer] CHART. IT IS NOT A COPY OF THE [employer] PROGRESS NOTE. MARCIE
== END ==
LOC: M PAIN 13:30
PROVIDERS: ATTEND Nurse Practitioner Family
DX: M46.1 Sacroiliitis, not elsewhere classified (principal); G89.29 Other chronic pain; M87.00 Idiopathic aseptic necrosis of unspecified bone; E11.9 Type 2 diabetes mellitus without complications; J44.9 Chronic obstructive pulmonary disease, unspecified; E03.9 Hypothyroidism, unspecified; G47.33 Obstructive sleep apnea (adult) (pediatric); F17.210 Nicotine dependence, cigarettes, uncomplicated; Z86.14 Personal history of Methicillin resistant Staphylococcus aureus infection; Z96.651 Presence of right artificial knee joint; Z91.09 Other allergy status, other than to drugs and biological substances; E66.01 Morbid (severe) obesity due to excess calories; Z68.43 Body mass index [BMI] 50.0-59.9, adult; Z79.891 Long term (current) use of opiate analgesic; Z79.899 Other long term (current) drug therapy

== ENCOUNTER → 2020-12-01 | Outpatient (CLI) | payer MEDICAID, MEDICARE, OTHER ==
--- NOTE | 2020-12-03 05:52 | ECWPNPC ---
PATIENT NAME: JOANNE REYES : 1960 GENDER: FEMALE VISIT DATE: 12/01/2020 DISCHARGE DATE: 12/01/20 1457 VISIT LOCKED DATE TIME: PHYSICIAN: BERNY TORRES PHYSICIAN PAGER NO: ACTIVE RESOURCE: BERNY TORRES REASON FOR APPOINTMENT 1. MEDICATION MANAGEMENT/URINE TOX HISTORY OF PRESENT ILLNESS GENERAL: HERE FOR FOLLOW-UP AND MANAGEMENT/MEDICATION FOR CHRONIC LOW BACK PAIN. DUE TO INSURANCE CONSTRAINTS WE SWITCHED HER FROM OXYCONTIN 10 MG TWICE A DAY TO XTAMPZA 9MG BID. REPORTING AGGRAVATION IN PAIN SINCE SWITCHING TO XTAMPZA. STATES COLD WEATHER ALWAYS MAKES HER PAIN WORSE. HAS BEEN VERY UNCOMFORTABLE. WAS USING DILAUDID 4 MG TABLETS 4 TABLETS DAILY AND REALIZES THAT SHE IS ONLY GIVEN 100 TABLETS FOR 30 DAY SUPPLY. DISCUSSED USE OF PAIN MEDICATIONS AND EXPECTATIONS. I DID INFORM HER THAT WE DO NOT WANT HER USING A SHORT ACTING PAIN MEDICATION EVERY DAY AT 4 PILLS DAILY AND WE WOULD NOT BE PRESCRIBING THAT MEDICATION THIS WAY. DISCUSSED MEDICATION TREATMENT PLAN. -. FALL RISK SCREENING: SCREENING :NO FALLS REPORTED IN THE LAST YEAR PAIN SCREENING: PATIENT HAS A COMPLAINT OF ACUTE OR CHRONIC PAIN :YES LOCATION OF PAIN:BACK PAIN GOES DOWN BOTH LEGS INTENSITY OF PAIN (SCALE OF 1 TO 10):10 WHAT DOES YOUR PAIN FEEL LIKE:ACHING, BURNING, STABBING, TENDER, THROBBING, SHOOTING DURATION:CONTINOUS, CONSTANT, ALL DAY PAIN IS INCREASED BY:ACTIVITIES, PROLONGED STANDING PAIN IS DECREASED BY:USE OF PAIN MEDICATIONS NURSING NOTE: -. PAIN CENTER INTAKE QUESTIONS: DO YOU HAVE A HISTORY OF MRSA? :YES URINE DO YOU TAKE A BLOOD THINNERS? :NO DO YOU HAVE ANY BLEEDING DISORDERS? :NO ANY NEW NUMBNESS OR WEAKNESS IN YOUR LEGS OR ARMS? :NO ANY PACEMAKER,DEFIBRILLATOR, OR DORSAL COLUMN STIMULATOR? :NO DO YOU HAVE ANY RASHES OR OPEN SORES? :NO ARE YOU ALLERGIC TO IV DYE? :NO ARE YOU DIABETIC? :YES DIET CONTROLLED ANY NEW PROBLEMS WITH YOUR MEDICATIONS? :NO HAVE YOU RECEIVED A VACCINE IN THE PAST 30 DAYS? :NO DO YOU PLAN TO RECEIVE A VACCINE IN THE NEXT 21 DAYS? :NO DO YOU NEED ANY PRESCRIPTION? :NO DO YOU TAKE ANY IMMUNOSUPPRESSIVE MEDICATIONS? :YES COSENTYX IS THERE A CHANCE YOU COULD BE ? :NO ARE YOU BREAST FEEDING? :NO CURRENT MEDICATIONS TAKING COSENTYX (300 MG DOSE) 150 MG/ML SOLUTION PREFILLED SYRINGE DIRECTED SUBCUTANEOUS MONTHLY TAKING OMEPRAZOLE 40 MG CAPSULE DELAYED RELEASE 1 CAPSULE 30 MINUTES BEFORE MORNING MEAL ORALLY ONCE A DAY TAKING ALBUTEROL SULFATE (2.5 MG/3ML) 0.083% NEBULIZATION SOLUTION 3 ML NEEDED INHALATION EVERY 6 HRS TAKING PROLIA 60MG INJECTION EVERY 6 MONTHS TAKING ERGOCALCIFEROL 1.25 MG (61454 UT) CAPSULE 1 CAPSULE ORALLY TAKING ATORVASTATIN CALCIUM 40 MG TABLET 1 TABLET ORALLY ONCE A DAY TAKING XTAMPZA ER 9 MG CAPSULE ER 12 HOUR ABUSE-DETERRENT 1 CAPSULE WITH FOOD ORALLY EVERY 12 HRS MDD2 TAKING SYNTHROID 75 MCG TABLET 1 TABLET IN THE MORNING ON AN EMPTY STOMACH ORALLY ONCE A DAY TAKING MAY HAVE - - DIRECTED PRESSURE RELIEVING MATTRESS DX:Z87.2, Z99.3 TAKING GABAPENTIN 300 MG CAPSULE 1 TABLET ORALLY THREE TIMES DAILY TAKING DILAUDID 4 MG TABLET 1 TABLET NEEDED ORALLY EVERY 6 HOURS WHEN NECESSARY FOR PAIN MDD 4 100 TABLETS SHOULD LAST 30 DAYS NOT-TAKING OXYCONTIN 10 MG TABLET ER 12 HOUR ABUSE-DETERRENT 1 TABLET ORALLY EVERY 12 HRS MDD2 NOT-TAKING NITROFURANTOIN MACROCRYSTAL 50 MG CAPSULE 1 CAPSULE AT BEDTIME WITH FOOD OR MILK ORALLY ONCE A DAY NOT-TAKING VITAMIN D3 SUPER STRENGTH 50 MCG (2000 UT) TABLET 1 TABLET ORALLY ONCE A DAY NOT-TAKING XTAMPZA ER 9 MG CAPSULE ER 12 HOUR ABUSE-DETERRENT 1 CAPSULE WITH FOOD ORALLY EVERY 12 HRS MDD2 NOT-TAKING CHANTIX 1 TAB ORAL BID MEDICATION LIST REVIEWED AND RECONCILED WITH THE PATIENT PAST MEDICAL HISTORY UTI- CHRONIC, ON DAILY ABX SKIN CANCER ON FACE- BCC COPD HEART MURMUR CKD STAGE II PREDIABETES HYPOTHYROIDISM NICOLE ON CPAP RIGHT ABOVE THE KNEE AMPUTATION DEXA- 04/2018 S/P RIGHT KIDNEY REMOVAL AVASCULAR NECROSIS ARTHRITIS ALLERGIES BAND-AID SOCIAL HISTORY GENERAL: TOBACCO USE ARE YOU A:FORMER SMOKER OCCASIONAL CIGARETTE HOW LONG HAS IT BEEN SINCE YOU LAST SMOKED? A WEEK AGO SMOKING CESSATION INFORMATION GIVEN12/01/2020 LATEX QUESTIONNAIRE LATEX ALLERGY : HAVE YOU EVER DEVELOPED ANY TYPE OF REACTION AFTER HANDLING LATEX PRODUCTS SUCH RUBBER GLOVES, CONDOMS, DIAPHRAGMS, BALLOONS, SOCKS, OR UNDERWEAR?NO LATEX ALLERGY : HAVE YOU EVER DEVELOPED ANY TYPE OF REACTION DURING OR AFTER DENTAL APPOINTMENT, VAGINAL/RECTAL EXAMINATION, SURGICAL PROCEDURE, OR ANY OTHER EXPOSURE?NO LATEX RISK : HAVE YOU EVER HAD ANY DIFFICULTY BREATHING OR HIVES AFTER EATING OR HANDLING ANY FRUITS, OR VEGETABLES; SUCH KIWI, BANANAS, STONE FRUITS, OR CHESTNUTSNO LATEX RISK : DO YOU HAVE A PREVIOUS PERSONAL HISTORY OF MORE THAN NINE SURGERIES, SPINA BIFIDA, OR REPEATED CATHERIZATIONS? NO LATEX RISK : ARE YOU FREQUENTLY EXPOSED TO LATEX PRODUCTS IN YOUR OCCUPATION?NO DATE ASKED : 12/01/2020 ALCOHOL USE: NO. ALCOHOL SCREENING DID YOU HAVE A DRINK CONTAINING ALCOHOL IN THE PAST YEAR?NO POINTS0 INTERPRETATIONNEGATIVE RECREATIONAL DRUG USE DRUG USE?NO CAFFEINE CAFFEINE USE? 12 OZ PEPSI DAILY [employer] NO LATTER-DAY BELIEFS THAT WOULD IMPACT HEALTH CARE. LANGUAGE LANGUAGES SPOKEN:GUAMANIAN EDUCATION LEVEL OF EDUCATION:NOT FINISHED COLLEGE LEARNING BARRIERS / SPECIAL NEEDS CHANGE FROM LAST VISIT?YES BARRIERS TO LEARNING?NO HEARING IMPAIRED?YES SOME HEARING LOSS VISION IMPAIRED?YES GLASSES COGNITIVELY IMPAIRED?NO READINESS TO LEARN?YES LEARNING PREFERENCES?NO LEARNING CAPABILITIES PRESENT?YES SPECIAL DEVICES?YES :WHEELCHAIR HISTORY OF RIGHT BKA DELIVERY DIRECTOR NEEDED?NO DOMESTIC VIOLENCE DO YOU FEEL SAFE IN YOUR ENVIRONMENT?YES OCCUPATION: UNEMPLOYED. DIET: REGULAR. EXERCISE: NO REGULAR EXERCISE. MARITAL STATUS: .. - HAS THE PATIENT BEEN EDUCATED REGARDING HIS/HER PLAN OF CARE?YES HAS THE PATIENT BEEN EDUCATED REGARDING PAIN, THE RISK FOR PAIN, THE IMPORTANCE OF EFFECTIVE PAIN MANAGEMENT, AND THE PAIN ASSESSMENT PROCESS?YES ADVANCE DIRECTIVE ADVANCE DIRECTIVE DISCUSSED WITH PATIENT:YES DAUGHTER LAURA REYES AND GIAN STEWART REVIEW OF SYSTEMS CONSTITUTIONAL: ANY RECENT FEVER NO . CHILLS NO . WEIGHT CHANGE OF UNKNOWN REASONS NO . GASTROENTEROLOGY: NEW UNEXPLAINABLE CHANGES IN BOWEL CONTROL NO . CONSTIPATION NO . GENITOURINARY: ANY NEW CHANGE IN BLADDER CONTROL? NO . NEUROLOGY: NEW ONSET DIZZINESS OR NEUROLOGICAL CHANGES NOT MENTIONED NO . NEW NUMBNESS OR PAIN PATTERNS NOT MENTIONED AND PERTINENT TO TODAY'S VISIT NO . CARDIOLOGY: NEW CHEST PRESSURE NO . NEW CHEST PAIN NO . RESPIRATORY: UNEXPLAINABLE COUGH NO . NEW SHORTNESS OF BREATH NO . VITAL SIGNS WT 163 LBS, HT 45 IN, BMI 56.59 INDEX, BP 121/58 MM HG, HR 53 /MIN, RR 18 /MIN, TEMP 97.6 F, OXYGEN SAT % 95%, SAFE IN ENV? (Y/N) YES, NA INITIALS AW 1402T.MILAGRO FLOWERS. EXAMINATION GENERAL EXAMINATION: GENERALAWAKE,ALERT ,PLEASANT . PSYCHAFFECT NORMAL . LUNGS:LUNG WILLIS ARE CLEAR TO AUSCULTATION BILATERALLY. GOOD MOVEMENT OF AIR . HEART:S1, S2 IN A REGULAR RATE AND RHYTHM. NO SIGNIFICANT MURMURS, RUBS OR GALLOPS NOTED . 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 (REF # ) BRINGS IN MEDICATIONS WHICH IS APPROPRIATE FOR WHAT WAS DISPENSED. URINE TOX TODAY , RISKS OF NARCOTIC/OPIOD MEDICATIONS INCLUDES BUT IS NOT LIMITED TO RISK OF DEPENDANCE/DEVELOPMENT OF ADDICTION, MOOD DISTURBANCE AND DEPRESSION, OSTEOPOROSIS, HORMONAL AND LABIDAL CHANGES, RESPIRATORY DEPRESSION AND . PATIENT IS ADVISED NOT TO DRIVE OR DRINK ALCOHOL WHILE ON THESE MEDICATIONS. PROCEDURE CODES FA211 ESTABILISHED PATIENT [facility] CHARGE DISPOSITION & COMMUNICATION FOLLOW UP 2 MONTHS (REASON: REVIEW URINE TOXICOLOGY/ASSESS RESPONSE TO INCREASE XTAMPZA DOSE) ELECTRONICALLY SIGNED BY MARK OCASIO ON 12/02/2020 AT 11:31 AM EST DISCLAIMER : THIS IS A VISIT SUMMARY EXTRACTED FROM THE [employer] CHART. IT IS NOT A COPY OF THE [employer] PROGRESS NOTE. MARCIE
== END ==
LOC: M PAIN 14:15
PROVIDERS: ATTEND Nurse Practitioner Family
DX: M45.6 Ankylosing spondylitis lumbar region (principal); J44.9 Chronic obstructive pulmonary disease, unspecified; N18.30 Chronic kidney disease, stage 3 unspecified; R73.03 Prediabetes; E03.9 Hypothyroidism, unspecified; G47.33 Obstructive sleep apnea (adult) (pediatric); Z89.611 Acquired absence of right leg above knee; Z90.5 Acquired absence of kidney; Z87.891 Personal history of nicotine dependence; Z85.828 Personal history of other malignant neoplasm of skin; Z79.891 Long term (current) use of opiate analgesic; Z79.899 Other long term (current) drug therapy; Z91.048 Other nonmedicinal substance allergy status

== ENCOUNTER → 2020-12-13 | Outpatient (CLI) | payer MEDICARE, MEDICAID ==
[~2020-12-13] MED LIST changes: +XTAM18CA PO
--- NOTE | 2020-12-13 09:20 | REPPI ---
INDICATION: R20.2 PARETHESIA OF SKIN COMPARISON: None. TECHNIQUE: AP, lateral, flexion/extension, bilateral oblique, and open-mouth views. FINDINGS: Alignment is maintained and there is no evidence for acute fracture/compression injury or subluxation. Focal endplate sclerosis and minimal disc space narrowing at C4-5 and C6-7 is suggested. Remainder of the examination is relatively age-appropriate. Oblique views demonstrate patent neural foramen. Open mouth view demonstrates normal C1-C2 articulation and odontoid process. IMPRESSION: Minimal disc space narrowing suggested at C4-5 and C6-7. <Electronically signed by Eric Kennedy > 12/13/20 0993
--- NOTE | 2020-12-13 09:21 | REPPI ---
INDICATION: J44.9 CHRONIC OBSTRUCTIVE PULMONARY DISEASE COMPARISON: 12/26/2012 TECHNIQUE: PA and lateral. FINDINGS: The mediastinum and cardiac silhouette are normal. The lung burgos are clear and without acute consolidation, effusion, or pneumothorax. The skeletal structures are intact and normal. IMPRESSION: No acute cardiopulmonary process. <Electronically signed by Eric Kennedy > 12/13/20 0918
[2020-12-13 11:20] LABS: FREE T4 0.89 NG/DL (0.76-1.46)
== END ==
LOC: M PLAIMG 08:35
PROVIDERS: ATTEND Physician Assistant
DX: E03.9 Hypothyroidism, unspecified (principal); R20.2 Paresthesia of skin; J44.9 Chronic obstructive pulmonary disease, unspecified
CPT/HCPCS: 36415; 71046; 72052; 84439; 84443; G0463

== ENCOUNTER 2020-12-31 19:23 | Emergency (ER) | payer MEDICARE, OTHER ==
[~2020-12-31 19:23] MED LIST changes: -XTAM18CA PO
[2020-12-31 19:32] VITALS: BP 146/69
[2020-12-31] MEDS ORDERED: XTAM18CA PO (19:33)
[2020-12-31] MEDS ORDERED: NS 1,000 ML IV ONE (20:50)
[2020-12-31] MEDS ORDERED: PROMETHAZINE INJ 25 MG/ML VIAL (J2550) IV ONE (20:50)
[2020-12-31] MEDS ORDERED: PANTOPRAZOLE 40MG VIAL (C9113 PER 1) IV ONE (20:50)
--- NOTE | 2020-12-31 21:20 | REPVR ---
PROCEDURE INFORMATION: Exam: CT Abdomen And Pelvis Without Contrast Exam date and time: 12/31/2020 8:59 PM Age: 60 years old Clinical indication: Abdominal pain; Generalized; Additional info: Abd pain TECHNIQUE: Imaging protocol: Computed tomography of the abdomen and pelvis without contrast. Radiation optimization: All CT scans at this facility use at least one of these dose optimization techniques: automated exposure control; mA and/or kV adjustment per patient size (includes targeted exams where dose is matched to clinical indication); or iterative reconstruction. COMPARISON: RENAL US 09/28/2020 12:27 PM FINDINGS: Liver: Normal. No mass. Gallbladder and bile ducts: There has been a cholecystectomy. Pancreas: Normal. No ductal dilation. Spleen: Normal. No splenomegaly. Adrenal glands: Normal. No mass. Kidneys and ureters: There has been a right nephrectomy. Typically expected postoperative changes demonstrated. No mass demonstrated. Stomach and bowel: There is increased feces throughout the colon consistent with constipation. Appendix: No evidence of appendicitis. Intraperitoneal space: Unremarkable. No free air. No significant fluid collection. Vasculature: The aortoiliac vessels demonstrate mild atherosclerotic calcification. The aortoiliac vessels demonstrate moderate atherosclerotic calcification. Lymph nodes: Unremarkable. No enlarged lymph nodes. Urinary bladder: Unremarkable as visualized. Reproductive: There has been a hysterectomy. Bones/joints: Unremarkable. No acute fracture. Soft tissues: Unremarkable. IMPRESSION: 1. There has been a cholecystectomy. 2. There has been a right nephrectomy. Typically expected postoperative changes demonstrated. No mass demonstrated. 3. There is increased feces throughout the colon consistent with constipation. 4. There has been a hysterectomy. Electronically signed by: Jordan Arredondo On 12/31/2020 21:20:30 PM
[2020-12-31 21:48] LABS: BASO # 0.1 10^3/uL (0.0-0.2); BASO % 0.9 % (0.0-1.0); EOS # 0.5 10^3/uL (0.0-0.5); EOS % 5.3 % (0.0-3.0); HEMATOCRIT 43.8 % (36.0-47.0); HEMOGLOBIN 14.1 g/dl (12.0-15.5); LYMPH # 3.2 10^3/uL (1.5-5.0); MEAN CORPUSCULAR HEMOGLOBIN 32.4 pg (27.0-33.0); MEAN CORPUSCULAR HGB CONC 32.2 g/dl (32.0-36.5); MEAN CORPUSCULAR VOLUME 100.7 fl (80.0-96.0); MONO # 0.6 10^3/uL (0.0-0.8); MONO % 5.7 % (2.0-8.0); NEUTROPHILS # 5.5 10^3/uL (1.5-8.5); NEUTROPHILS % 55.7 % (36.0-66.0); PLATELET COUNT, AUTOMATED 284 10^3/uL (150-450); RED BLOOD COUNT 4.35 10^6/uL (4.00-5.40); WHITE BLOOD COUNT 9.9 10^3/uL (4.0-10.0)
[2020-12-31 21:58] LABS: INR 0.92; PROTHROMBIN TIME 12.6 SECONDS (12.5-14.3)
[2020-12-31 22:26] LABS: ALBUMIN 3.5 GM/DL (3.2-5.2); ALT/SGPT 12 U/L (12-78); BILIRUBIN,DIRECT < 0.1 MG/DL (0.0-0.2); BILIRUBIN,TOTAL 0.3 MG/DL (0.2-1.0); BLOOD UREA NITROGEN 15 MG/DL (7-18); CALCIUM LEVEL 8.8 MG/DL (8.5-10.1); CARBON DIOXIDE LEVEL 32 MEQ/L (21-32); CHLORIDE LEVEL 109 MEQ/L (98-107); GLOMERULAR FILTRATION RATE > 60.0 (>51); GLUCOSE, FASTING 94 MG/DL (70-100); LIPASE 91 U/L (73-393); POTASSIUM SERUM 4.3 MEQ/L (3.5-5.1); SODIUM LEVEL 143 MEQ/L (136-145); TOTAL PROTEIN 6.6 GM/DL (6.4-8.2)
== END 2021-01-01 00:51 | disposition home or self-care (01) ==
LOC: M ED 19:23
DX: K59.00 Constipation, unspecified (principal); R10.9 Unspecified abdominal pain; E78.5 Hyperlipidemia, unspecified; J44.9 Chronic obstructive pulmonary disease, unspecified; G89.29 Other chronic pain; Z90.5 Acquired absence of kidney; F17.200 Nicotine dependence, unspecified, uncomplicated; Z88.6 Allergy status to analgesic agent; Z91.048 Other nonmedicinal substance allergy status; Z90.710 Acquired absence of both cervix and uterus; Z79.899 Other long term (current) drug therapy
CPT/HCPCS: 74176; 80048; 80076; 83690; 85025; 85610; 96361; 96374; 96375; 99284; C9113

== ENCOUNTER → 2021-01-28 | Outpatient (CLI) | payer MEDICARE, MEDICAID ==
[~2021-01-28] MED LIST changes: +XTAM18CA PO
--- NOTE | 2021-02-02 06:19 | ECWPNPC ---
PATIENT NAME: JOANNE REYES : 1960 GENDER: FEMALE VISIT DATE: 01/28/2021 DISCHARGE DATE: 01/28/21 1437 VISIT LOCKED DATE TIME: PHYSICIAN: BERNY TORRES PHYSICIAN PAGER NO: ACTIVE RESOURCE: BERNY TORRES REASON FOR APPOINTMENT 1. BACK HISTORY OF PRESENT ILLNESS GENERAL: HERE FOR FOLLOW-UP OF LOW BACK PAIN WITH LEFT LEG RADICULAR SYMPTOMS AND PHANTOM LIMB PAIN. HISTORY OF ANKYLOSING SPONDYLITIS OF THE SPINE. LAST VISIT WE INCREASED XTAMPZA ER TO 18MG BID. PATIENT STATES IT WAS HELPFUL BUT SHE STILL HAS SEVERE PAIN IN THE MORNING AND MIDDAY. HAS BEEN USING DILAUDID 4 MG TABLETS FOR BREAKTHROUGH PAIN. DISCUSSED TREATMENT OPTIONS. SHE DOES NOT WANT TO DO INJECTION THERAPY. -. FALL RISK SCREENING: SCREENING 5 FALL THIS YEAR DID NOT GO THE ER. PAIN SCREENING: PATIENT HAS A COMPLAINT OF ACUTE OR CHRONIC PAIN :YES LOCATION OF PAIN:LOW BACK INTENSITY OF PAIN (SCALE OF 1 TO 10):10 WHAT DOES YOUR PAIN FEEL LIKE:ACHING, CONTINOUS, STABBING, THROBBING, SHOOTING DURATION:CONTINOUS, CONSTANT, ALL DAY PAIN IS INCREASED BY:OTHERS EVERYTHING PAIN IS DECREASED BY:USE OF PAIN MEDICATIONS, OTHERS SOME DAYS THE MEDS DOES WORK NURSING NOTE: -. PAIN CENTER INTAKE QUESTIONS: DO YOU HAVE A HISTORY OF MRSA? :YES URINE DO YOU TAKE A BLOOD THINNERS? :NO DO YOU HAVE ANY BLEEDING DISORDERS? :NO ANY NEW NUMBNESS OR WEAKNESS IN YOUR LEGS OR ARMS? :NO ANY PACEMAKER,DEFIBRILLATOR, OR DORSAL COLUMN STIMULATOR? :NO DO YOU HAVE ANY RASHES OR OPEN SORES? :YES NOT OPEN SORE ARE YOU ALLERGIC TO IV DYE? :NO ARE YOU DIABETIC? :YES DIET CONTROLLED ANY NEW PROBLEMS WITH YOUR MEDICATIONS? :NO HAVE YOU RECEIVED A VACCINE IN THE PAST 30 DAYS? :YES 1ST COVID 01/13/2021 DO YOU PLAN TO RECEIVE A VACCINE IN THE NEXT 21 DAYS? :YES 2ND COVID 02/10/2021 DO YOU NEED ANY PRESCRIPTION? :YES XTAMPZA DO YOU TAKE ANY IMMUNOSUPPRESSIVE MEDICATIONS? :YES COSENTYX IS THERE A CHANCE YOU COULD BE ? :NO ARE YOU BREAST FEEDING? :NO CURRENT MEDICATIONS TAKING COSENTYX (300 MG DOSE) 150 MG/ML SOLUTION PREFILLED SYRINGE DIRECTED SUBCUTANEOUS MONTHLY TAKING OMEPRAZOLE 40 MG CAPSULE DELAYED RELEASE 1 CAPSULE 30 MINUTES BEFORE MORNING MEAL ORALLY ONCE A DAY TAKING ALBUTEROL SULFATE (2.5 MG/3ML) 0.083% NEBULIZATION SOLUTION 3 ML NEEDED INHALATION EVERY 6 HRS TAKING PROLIA 60MG INJECTION EVERY 6 MONTHS TAKING ATORVASTATIN CALCIUM 40 MG TABLET 1 TABLET ORALLY ONCE A DAY TAKING MAY HAVE - - DIRECTED PRESSURE RELIEVING MATTRESS DX:Z87.2, Z99.3 TAKING GABAPENTIN 300 MG CAPSULE 1 TABLET ORALLY THREE TIMES DAILY TAKING MUPIROCIN 2 % OINTMENT 1 APPLICATION EXTERNALLY THREE TIMES A DAY TAKING XTAMPZA ER 18 MG CAPSULE ER 12 HOUR ABUSE-DETERRENT 1 CAPSULE WITH FOOD ORALLY EVERY 12 HRS MDD2 TAKING SYNTHROID 100 MCG TABLET 1 TABLET IN THE MORNING ON AN EMPTY STOMACH ORALLY ONCE A DAY TAKING VITAMIN D3 SUPER STRENGTH 50 MCG (2000 UT) TABLET 1 TABLET ORALLY ONCE A DAY TAKING DILAUDID 4 MG TABLET 1 TABLET NEEDED ORALLY EVERY 6 HOURS WHEN NECESSARY FOR PAIN MDD 4 100 TABLETS SHOULD LAST 30 DAYS NOT-TAKING ERGOCALCIFEROL 1.25 MG (46789 UT) CAPSULE 1 CAPSULE ORALLY NOT-TAKING OXYCONTIN 10 MG TABLET ER 12 HOUR ABUSE-DETERRENT 1 TABLET ORALLY EVERY 12 HRS MDD2 NOT-TAKING NITROFURANTOIN MACROCRYSTAL 50 MG CAPSULE 1 CAPSULE AT BEDTIME WITH FOOD OR MILK ORALLY ONCE A DAY NOT-TAKING XTAMPZA ER 9 MG CAPSULE ER 12 HOUR ABUSE-DETERRENT 1 CAPSULE WITH FOOD ORALLY EVERY 12 HRS MDD2 NOT-TAKING CHANTIX 1 TAB ORAL BID MEDICATION LIST REVIEWED AND RECONCILED WITH THE PATIENT PAST MEDICAL HISTORY UTI- CHRONIC, ON DAILY ABX SKIN CANCER ON FACE- BCC COPD HEART MURMUR CKD STAGE II PREDIABETES HYPOTHYROIDISM NICOLE ON CPAP RIGHT ABOVE THE KNEE AMPUTATION DEXA- 04/2018 S/P RIGHT KIDNEY REMOVAL AVASCULAR NECROSIS ARTHRITIS ALLERGIES BAND-AID: HIVES - SIDE EFFECTS SOCIAL HISTORY GENERAL: TOBACCO USE ARE YOU A:CURRENT SMOKER OCCASIONAL CIGARETTE SMOKING CESSATION INFORMATION GIVEN01/28/2021 LATEX QUESTIONNAIRE LATEX ALLERGY : HAVE YOU EVER DEVELOPED ANY TYPE OF REACTION AFTER HANDLING LATEX PRODUCTS SUCH RUBBER GLOVES, CONDOMS, DIAPHRAGMS, BALLOONS, SOCKS, OR UNDERWEAR?NO LATEX ALLERGY : HAVE YOU EVER DEVELOPED ANY TYPE OF REACTION DURING OR AFTER DENTAL APPOINTMENT, VAGINAL/RECTAL EXAMINATION, SURGICAL PROCEDURE, OR ANY OTHER EXPOSURE?NO LATEX RISK : HAVE YOU EVER HAD ANY DIFFICULTY BREATHING OR HIVES AFTER EATING OR HANDLING ANY FRUITS, OR VEGETABLES; SUCH KIWI, BANANAS, STONE FRUITS, OR CHESTNUTSNO LATEX RISK : DO YOU HAVE A PREVIOUS PERSONAL HISTORY OF MORE THAN NINE SURGERIES, SPINA BIFIDA, OR REPEATED CATHERIZATIONS? NO LATEX RISK : ARE YOU FREQUENTLY EXPOSED TO LATEX PRODUCTS IN YOUR OCCUPATION?NO DATE ASKED : 01/28/2021 ALCOHOL USE: NO. ALCOHOL SCREENING DID YOU HAVE A DRINK CONTAINING ALCOHOL IN THE PAST YEAR?NO POINTS0 INTERPRETATIONNEGATIVE RECREATIONAL DRUG USE DRUG USE?NO CAFFEINE CAFFEINE USE? 12 OZ PEPSI DAILY RELIGIOUS RELIGIOUS NO ADVENTIST BELIEFS THAT WOULD IMPACT HEALTH CARE. LANGUAGE LANGUAGES SPOKEN:BRAZILIAN EDUCATION LEVEL OF EDUCATION:NOT FINISHED COLLEGE LEARNING BARRIERS / SPECIAL NEEDS CHANGE FROM LAST VISIT?NO BARRIERS TO LEARNING?NO HEARING IMPAIRED?YES SOME HEARING LOSS VISION IMPAIRED?YES GLASSES COGNITIVELY IMPAIRED?NO READINESS TO LEARN?YES LEARNING PREFERENCES?NO LEARNING CAPABILITIES PRESENT?YES SPECIAL DEVICES?YES :WHEELCHAIR HISTORY OF RIGHT BKA FOOT CASTER NEEDED?NO DOMESTIC VIOLENCE DO YOU FEEL SAFE IN YOUR ENVIRONMENT?YES OCCUPATION: UNEMPLOYED. DIET: REGULAR. EXERCISE: NO REGULAR EXERCISE. MARITAL STATUS: .. - HAS THE PATIENT BEEN EDUCATED REGARDING HIS/HER PLAN OF CARE?YES HAS THE PATIENT BEEN EDUCATED REGARDING PAIN, THE RISK FOR PAIN, THE IMPORTANCE OF EFFECTIVE PAIN MANAGEMENT, AND THE PAIN ASSESSMENT PROCESS?YES ADVANCE DIRECTIVE ADVANCE DIRECTIVE DISCUSSED WITH PATIENT:YES DAUGHTER LAURA REYES AND GIAN STEWART REVIEW OF SYSTEMS CONSTITUTIONAL: ANY RECENT FEVER NO . CHILLS NO . WEIGHT CHANGE OF UNKNOWN REASONS NO . GASTROENTEROLOGY: NEW UNEXPLAINABLE CHANGES IN BOWEL CONTROL NO . CONSTIPATION NO . GENITOURINARY: ANY NEW CHANGE IN BLADDER CONTROL? NO . NEUROLOGY: NEW ONSET DIZZINESS OR NEUROLOGICAL CHANGES NOT MENTIONED NO . NEW NUMBNESS OR PAIN PATTERNS NOT MENTIONED AND PERTINENT TO TODAY'S VISIT NO . CARDIOLOGY: NEW CHEST PRESSURE NO . PATIENT DENIES NO . RESPIRATORY: UNEXPLAINABLE COUGH NO . NEW SHORTNESS OF BREATH NO . VITAL SIGNS WT UNABLE TO WT, HT 45 IN, BMI 56.59 INDEX, BP 127/60 MM HG, HR 58 /MIN, RR 18 /MIN, TEMP 96.1 F, OXYGEN SAT % 92%, SAFE IN ENV? (Y/N) YES, NA INITIALS NJ 13:51T.MILAGRO FLOWERS. EXAMINATION GENERAL EXAMINATION: GENERALAWAKE,ALERT ,PLEASANT . PSYCHAFFECT NORMAL . LUNGS:LUNG WILLIS ARE CLEAR TO AUSCULTATION BILATERALLY. GOOD MOVEMENT OF AIR . HEART:S1, S2 IN A REGULAR RATE AND RHYTHM. NO SIGNIFICANT MURMURS, RUBS OR GALLOPS NOTED . 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) TREATMENT ANKYLOSING SPONDYLITIS LUMBAR REGION REFILL GABAPENTIN CAPSULE, 300 MG, 1 TABLET, ORALLY, THREE TIMES DAILY, 30 DAYS, 90, REFILLS 2 INCREASE XTAMPZA ER CAPSULE ER 12 HOUR ABUSE-DETERRENT, 27 MG, 1 CAPSULE WITH FOOD, ORALLY, EVERY 12 HRS MDD2, 30 DAYS, 60, REFILLS 0 DECREASE DILAUDID TABLET, 4 MG, 1 TABLET NEEDED, ORALLY, Q8H PRN MDD3, 30 DAYS, 90, REFILLS 0 PROCEDURE CODES FA211 ESTABILISHED PATIENT [facility] CHARGE DISPOSITION & COMMUNICATION FOLLOW UP 2 MONTHS (REASON: MED MGMNT/DECREASE DILAUDID AND CHECK ON INCREASED DOSE OF XTAMPZA) ELECTRONICALLY SIGNED BY MARK OCASIO ON 02/01/2021 AT 02:23 PM EDT DISCLAIMER : THIS IS A VISIT SUMMARY EXTRACTED FROM THE [employer] CHART. IT IS NOT A COPY OF THE [employer] PROGRESS NOTE. MTDD
== END ==
LOC: M PAIN 14:00
PROVIDERS: ATTEND Nurse Practitioner Family
DX: M45.6 Ankylosing spondylitis lumbar region (principal); E11.9 Type 2 diabetes mellitus without complications; J44.9 Chronic obstructive pulmonary disease, unspecified; E03.9 Hypothyroidism, unspecified; G47.33 Obstructive sleep apnea (adult) (pediatric); F17.210 Nicotine dependence, cigarettes, uncomplicated; Z86.14 Personal history of Methicillin resistant Staphylococcus aureus infection; Z91.09 Other allergy status, other than to drugs and biological substances; E66.01 Morbid (severe) obesity due to excess calories; Z68.43 Body mass index [BMI] 50.0-59.9, adult; Z79.891 Long term (current) use of opiate analgesic; Z79.899 Other long term (current) drug therapy

== ENCOUNTER → 2021-02-10 | Outpatient (REF) | payer MEDICARE ==
[2021-02-10 11:33] LABS: FREE T4 1.1 NG/DL (0.76-1.46); THYROID STIMULATING HORMONE 8.65 uIU/ML (0.358-3.740)
== END ==
LOC: M SFHCPLAZ 08:16
PROVIDERS: ATTEND Physician Assistant
DX: E03.9 Hypothyroidism, unspecified (principal); F17.210 Nicotine dependence, cigarettes, uncomplicated
CPT/HCPCS: 36415; 84439; 84443; 99406; G0463

== ENCOUNTER → 2021-02-15 | Outpatient (REF) | payer MEDICARE ==
[2021-02-15 13:56] LABS: APPEARANCE, URINE CLEAR (CLEAR); BACTERIA, URINE AUTO NEGATIVE (NEGATIVE); BILIRUBIN, URINE AUTO NEGATIVE (NEGATIVE); BLOOD, URINE BLOOD NEGATIVE (NEGATIVE); COLOR, URINE YELLOW (YELLOW); GLUCOSE, URINE (UA) AUTO NEGATIVE (NEGATIVE); KETONE, URINE AUTO NEGATIVE (NEGATIVE); LEUKOCYTE ESTERASE, URINE AUTO NEGATIVE (NEGATIVE); NITRITE, URINE AUTO NEGATIVE (NEGATIVE); PROTEIN, URINE AUTO NEGATIVE (NEGATIVE); RBC, URINE AUTO 0 /HPF (0-3); SPECIFIC GRAVITY URINE AUTO 1.018 (1.002-1.035); SQUAMOUS EPITHELIAL CELL UR AU 2 /HPF (0-6); UROBILINOGEN, URINE AUTO 0.2 mg/dL (0.0-2.0); WBC, URINE AUTO 1 /HPF (0-3)
== END ==
LOC: M SMT 12:48
PROVIDERS: ATTEND Nurse Practitioner Family
DX: R35.0 Frequency of micturition (principal)
CPT/HCPCS: 51798; 81001; 87086; G0463

== ENCOUNTER → 2021-02-18 | Outpatient (CLI) | payer MEDICARE, MEDICAID ==
--- NOTE | 2021-02-18 09:23 | REPMRS ---
Patient History The patient states she has not had a clinical breast exam in over a year. Patient is postmenopausal and has history of other cancer at age 59. Family history of endometrial cancer at age 52 in maternal grandmother, pancreatic cancer at age 50 or over in maternal aunt. Took hormonal contraceptives for 2 years. Took estrogen for 6 months. Patient states no breast complaints today. Patient has signed MRS History Sheet. Digital Woman Screen Mammo: February 18, 2021 - Exam #: [id number] Bilateral CC and MLO view(s) were taken. Technologist: RT Lolita Prior study comparison: December 09, 2019, bilateral digital mammo screening bilat, performed at [facility]. FINDINGS: There are scattered fibroglandular densities. The Volpara volumetric breast density category is:B. There is a stable intramammary lymph node in the right breast] upper outer quadrant. There has been no change in the appearance of the mammogram from the prior studies. There is a mild amount of scattered fibroglandular density which is fairly symmetric. There is no interval development of dominant mass, architectural distortion, or grouped microcalcification suggestive of malignancy. 3-D tomosynthesis shows no additional findings. Assessment: BI-RADS/ACR category 2 mammogram. Benign Findings. Recommendation Routine screening mammogram of both breasts in 1 year (for women over age 40). This patient's [facility] Lifetime Breast Cancer Risk is estimated at 3.6 %. This mammogram was interpreted with the aid of an FDA-approved computer-aided dectection system. Electronically Signed By: Ranjit Pablo MD 02/18/21 0922
== END ==
LOC: M WHC 07:45
PROVIDERS: ATTEND Physician Assistant
DX: Z12.31 Encounter for screening mammogram for malignant neoplasm of breast (principal); Z85.9 Personal history of malignant neoplasm, unspecified

== ENCOUNTER → 2021-04-04 | Outpatient (CLI) | payer MEDICARE, MEDICAID ==
--- NOTE | 2021-04-06 02:11 | ECWPNPC ---
PATIENT NAME: JOANNE REYES : 1960 GENDER: FEMALE VISIT DATE: 04/04/2021 DISCHARGE DATE: 04/04/21 1030 VISIT LOCKED DATE TIME: PHYSICIAN: BERNY TORRES PHYSICIAN PAGER NO: ACTIVE RESOURCE: BERNY TORRES REASON FOR APPOINTMENT 1. MED MGMNT/DECREASE DILAUDID AND CHECK ON INCREASED DOSE OF XTAMPZA HISTORY OF PRESENT ILLNESS GENERAL: HERE FOR FOLLOW-UP OF CHRONIC LOW BACK PAIN AND LEFT LEG PAIN. WE HAVE BEEN WORKING ON MEDICATION MANAGEMENT. PATIENT IS STATUS POST RIGHT [id number] AMPUTATION. HISTORY OF PAIN MEDICATION PUMP PLACED 7 OR 8 YEARS AGO. IT WAS REMOVED TO 2 YEARS AFTER IT WAS PLACED. PATIENT WAS SEPTIC. HAS BEEN ON CHRONIC OPIOID THERAPY FOR MANY YEARS. PATIENT COMPLAINS THAT IN THE MORNING SHE IS IN SEVERE PAIN AND TAKES LONG-ACTING PAIN MEDICATION WHEN SHE AWAKENS. STATES IT TAKES A WHILE FOR THAT TO KICK IN AND THEN APPROXIMATELY 4 HOURS LATER SHE DOES TAKE A SHORT ACTING. DISCUSSED WAYS OF TAKING THE MEDICATION THAT MIGHT BE MORE EFFECTIVE I.E. TAKE THE SHORT ACTING PAIN MEDICATION FIRST THING IN THE MORNING AND WAIT A FEW HOURS BEFORE SHE TAKES A LONG-ACTING. PATIENT HAS 1 KIDNEY AND HAS STAGE II CHRONIC KIDNEY DISEASE. -. FALL RISK SCREENING: SCREENING ONE FALL ON THIS YEAR DID NOT GO TO THE ER HURT RIGHT SHOULDER AND RIGHT SIDE OF THE FACE. PAIN SCREENING: PATIENT HAS A COMPLAINT OF ACUTE OR CHRONIC PAIN :YES LOCATION OF PAIN:LEFT SHOULDER, LOW BACK, LEG(S) INTENSITY OF PAIN (SCALE OF 1 TO 10):10 WHAT DOES YOUR PAIN FEEL LIKE:ACHING, BURNING, TENDER, SORE DURATION:CONTINOUS, CONSTANT, ALL DAY PAIN IS INCREASED BY:ACTIVITIES PAIN IS DECREASED BY:USE OF PAIN MEDICATIONS NURSING NOTE: -. PAIN CENTER INTAKE QUESTIONS: DO YOU HAVE A HISTORY OF MRSA? :YES URINE DO YOU TAKE A BLOOD THINNERS? :NO DO YOU HAVE ANY BLEEDING DISORDERS? :NO ANY NEW NUMBNESS OR WEAKNESS IN YOUR LEGS OR ARMS? :NO ANY PACEMAKER,DEFIBRILLATOR, OR DORSAL COLUMN STIMULATOR? :NO DO YOU HAVE ANY RASHES OR OPEN SORES? :YES RASHES ON UPPER ARMS ARE YOU ALLERGIC TO IV DYE? :NO ARE YOU DIABETIC? :YES DIET CONTROLLED ANY NEW PROBLEMS WITH YOUR MEDICATIONS? :YES DILAUDID 4 MG TABLET - PATIENT STATED THAT SHE WANT TO KNOW HOW MANY CAN SHE TAKE, AND THAT ITS SHORT ACTIVE HAVE YOU RECEIVED A VACCINE IN THE PAST 30 DAYS? :YES 1ST COVID 01/13/2021 DO YOU PLAN TO RECEIVE A VACCINE IN THE NEXT 21 DAYS? :YES 2ND COVID 02/10/2021 DO YOU NEED ANY PRESCRIPTION? :NO DO YOU TAKE ANY IMMUNOSUPPRESSIVE MEDICATIONS? :YES COSENTYX IS THERE A CHANCE YOU COULD BE ? :NO ARE YOU BREAST FEEDING? :NO CURRENT MEDICATIONS TAKING COSENTYX (300 MG DOSE) 150 MG/ML SOLUTION PREFILLED SYRINGE DIRECTED SUBCUTANEOUS MONTHLY TAKING OMEPRAZOLE 40 MG CAPSULE DELAYED RELEASE 1 CAPSULE 30 MINUTES BEFORE MORNING MEAL ORALLY ONCE A DAY TAKING ALBUTEROL SULFATE (2.5 MG/3ML) 0.083% NEBULIZATION SOLUTION 3 ML NEEDED INHALATION EVERY 6 HRS TAKING PROLIA 60MG INJECTION EVERY 6 MONTHS TAKING ATORVASTATIN CALCIUM 40 MG TABLET 1 TABLET ORALLY ONCE A DAY TAKING MAY HAVE - - DIRECTED PRESSURE RELIEVING MATTRESS DX:Z87.2, Z99.3 TAKING MUPIROCIN 2 % OINTMENT 1 APPLICATION EXTERNALLY THREE TIMES A DAY TAKING VITAMIN D3 SUPER STRENGTH 50 MCG (2000 UT) TABLET 1 TABLET ORALLY ONCE A DAY TAKING GABAPENTIN 300 MG CAPSULE 1 TABLET ORALLY THREE TIMES DAILY TAKING ERGOCALCIFEROL 1.25 MG (98428 UT) CAPSULE 1 CAPSULE ORALLY WEEKLY TAKING SYNTHROID 112 MCG TABLET 1 TABLET IN THE MORNING ON AN EMPTY STOMACH ORALLY ONCE A DAY TAKING XTAMPZA ER 27 MG CAPSULE ER 12 HOUR ABUSE-DETERRENT 1 CAPSULE WITH FOOD ORALLY EVERY 12 HRS MDD2 TAKING DILAUDID 4 MG TABLET 1 TABLET NEEDED ORALLY Q8H PRN MDD3 NOT-TAKING OXYCONTIN 10 MG TABLET ER 12 HOUR ABUSE-DETERRENT 1 TABLET ORALLY EVERY 12 HRS MDD2 NOT-TAKING NITROFURANTOIN MACROCRYSTAL 50 MG CAPSULE 1 CAPSULE AT BEDTIME WITH FOOD OR MILK ORALLY ONCE A DAY NOT-TAKING XTAMPZA ER 9 MG CAPSULE ER 12 HOUR ABUSE-DETERRENT 1 CAPSULE WITH FOOD ORALLY EVERY 12 HRS MDD2 NOT-TAKING CHANTIX 1 TAB ORAL BID MEDICATION LIST REVIEWED AND RECONCILED WITH THE PATIENT PAST MEDICAL HISTORY UTI- CHRONIC, ON DAILY ABX SKIN CANCER ON FACE- BCC COPD HEART MURMUR CKD STAGE II PREDIABETES HYPOTHYROIDISM NICOLE ON CPAP RIGHT ABOVE THE KNEE AMPUTATION DEXA- 04/2018 S/P RIGHT KIDNEY REMOVAL AVASCULAR NECROSIS ARTHRITIS ONE FALL ON THIS YEAR DID NOT GO TO THE ER HURT RIGHT SHOULDER AND RIGHT SIDE OF THE FACE ALLERGIES BAND-AID: HIVES - SIDE EFFECTS SOCIAL HISTORY GENERAL: TOBACCO USE ARE YOU A:CURRENT SMOKER OCCASIONAL CIGARETTE ARE YOU INTERESTED IN QUITTING?THINKING ABOUT QUITTING COUNSELED THE PATIENT ON SMOKING CESSATION, EDUCATION [id number]/21/2021 HOW MANY CIGARETTES A DAY DO YOU SMOKE?6-10 HOW SOON AFTER YOU WAKE UP DO YOU SMOKE YOUR FIRST CIGARETTE?AFTER 60 MIN HOW OFTEN DO YOU SMOKE CIGARETTES?SOME DAYS, BUT NOT EVERY DAY PATIENT COUNSELED ON THE DANGERS OF TOBACCO USE AND URGED TO QUIT:02/10/2021 SMOKING CESSATION INFORMATION GIVEN01/28/2021 LATEX QUESTIONNAIRE LATEX ALLERGY : HAVE YOU EVER DEVELOPED ANY TYPE OF REACTION AFTER HANDLING LATEX PRODUCTS SUCH RUBBER GLOVES, CONDOMS, DIAPHRAGMS, BALLOONS, SOCKS, OR UNDERWEAR?NO LATEX ALLERGY : HAVE YOU EVER DEVELOPED ANY TYPE OF REACTION DURING OR AFTER DENTAL APPOINTMENT, VAGINAL/RECTAL EXAMINATION, SURGICAL PROCEDURE, OR ANY OTHER EXPOSURE?NO LATEX RISK : HAVE YOU EVER HAD ANY DIFFICULTY BREATHING OR HIVES AFTER EATING OR HANDLING ANY FRUITS, OR VEGETABLES; SUCH KIWI, BANANAS, STONE FRUITS, OR CHESTNUTSNO LATEX RISK : DO YOU HAVE A PREVIOUS PERSONAL HISTORY OF MORE THAN NINE SURGERIES, SPINA BIFIDA, OR REPEATED CATHERIZATIONS? NO LATEX RISK : ARE YOU FREQUENTLY EXPOSED TO LATEX PRODUCTS IN YOUR OCCUPATION?NO DATE ASKED : 04/04/2021 ALCOHOL USE: NO. ALCOHOL SCREENING DID YOU HAVE A DRINK CONTAINING ALCOHOL IN THE PAST YEAR?NO POINTS0 INTERPRETATIONNEGATIVE RECREATIONAL DRUG USE DRUG USE?NO CAFFEINE CAFFEINE USE? 12 OZ PEPSI DAILY CHEONDOISM CHEONDOISM NO RELIGION BELIEFS THAT WOULD IMPACT HEALTH CARE. LANGUAGE LANGUAGES SPOKEN:UKRAINIAN EDUCATION LEVEL OF EDUCATION:NOT FINISHED COLLEGE LEARNING BARRIERS / SPECIAL NEEDS CHANGE FROM LAST VISIT?NO BARRIERS TO LEARNING?NO HEARING IMPAIRED?YES SOME HEARING LOSS VISION IMPAIRED?YES GLASSES :CORRECTIVE LENSES COGNITIVELY IMPAIRED?NO READINESS TO LEARN?YES LEARNING PREFERENCES?NO LEARNING CAPABILITIES PRESENT?YES SPECIAL DEVICES?YES :WHEELCHAIR HISTORY OF RIGHT BKA HORTICULTURALIST NEEDED?NO DOMESTIC VIOLENCE DO YOU FEEL SAFE IN YOUR ENVIRONMENT?YES OCCUPATION: UNEMPLOYED. DIET: REGULAR. EXERCISE: NO REGULAR EXERCISE. MARITAL STATUS: .. - HAS THE PATIENT BEEN EDUCATED REGARDING HIS/HER PLAN OF CARE?YES HAS THE PATIENT BEEN EDUCATED REGARDING PAIN, THE RISK FOR PAIN, THE IMPORTANCE OF EFFECTIVE PAIN MANAGEMENT, AND THE PAIN ASSESSMENT PROCESS?YES ADVANCE DIRECTIVE ADVANCE DIRECTIVE DISCUSSED WITH PATIENT:YES DAUGHTER LAURA REYES AND GIAN STEWART REVIEW OF SYSTEMS CONSTITUTIONAL: ANY RECENT FEVER NO . CHILLS NO . WEIGHT CHANGE OF UNKNOWN REASONS NO . GASTROENTEROLOGY: NEW UNEXPLAINABLE CHANGES IN BOWEL CONTROL NO . CONSTIPATION NO . GENITOURINARY: ANY NEW CHANGE IN BLADDER CONTROL? NO . NEUROLOGY: NEW ONSET DIZZINESS OR NEUROLOGICAL CHANGES NOT MENTIONED NO . NEW NUMBNESS OR PAIN PATTERNS NOT MENTIONED AND PERTINENT TO TODAY'S VISIT NO . CARDIOLOGY: NEW CHEST PRESSURE NO . PATIENT DENIES NO . RESPIRATORY: UNEXPLAINABLE COUGH NO . NEW SHORTNESS OF BREATH NO . VITAL SIGNS WT 152 LBS, HT 45 IN, BMI 52.77 INDEX, BP 126/58 MM HG, HR 53 /MIN, RR 18 /MIN, TEMP 96.0 F, OXYGEN SAT % 97%, SAFE IN ENV? (Y/N) YES, NA INITIALS MI 09:45T.MILAGRO FLOWERS. EXAMINATION GENERAL EXAMINATION: GENERALAWAKE,ALERT ,PLEASANT . PSYCHAFFECT NORMAL . LUNGS:LUNG WILLIS ARE CLEAR TO AUSCULTATION BILATERALLY. GOOD MOVEMENT OF AIR . HEART:S1, S2 IN A REGULAR RATE AND RHYTHM. NO SIGNIFICANT MURMURS, RUBS OR GALLOPS NOTED . 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 MAY TAKE LONG-ACTING XTAMPZA 2 HOURS AFTER AWAKENING. PROCEDURE CODES FA211 ESTABILISHED PATIENT [facility] FACILITY CHARGE DISPOSITION & COMMUNICATION FOLLOW UP 3 MONTHS (REASON: MED MGMNT/UTOX) ELECTRONICALLY SIGNED BY MARK OCASIO ON 04/05/2021 AT 01:56 PM EDT DISCLAIMER : THIS IS A VISIT SUMMARY EXTRACTED FROM THE [facility] [employer] [facility] CHART. IT IS NOT A COPY OF THE [employer] [facility] PROGRESS NOTE. MTDD
== END ==
LOC: M PAIN 09:30
PROVIDERS: ATTEND Nurse Practitioner Family
DX: M45.6 Ankylosing spondylitis lumbar region (principal); G89.29 Other chronic pain; E11.9 Type 2 diabetes mellitus without complications; J44.9 Chronic obstructive pulmonary disease, unspecified; E03.9 Hypothyroidism, unspecified; G47.33 Obstructive sleep apnea (adult) (pediatric); F17.210 Nicotine dependence, cigarettes, uncomplicated; Z91.09 Other allergy status, other than to drugs and biological substances; E66.01 Morbid (severe) obesity due to excess calories; Z68.43 Body mass index [BMI] 50.0-59.9, adult; Z79.891 Long term (current) use of opiate analgesic; Z79.899 Other long term (current) drug therapy

== ENCOUNTER → 2021-05-13 | Outpatient (CLI) | payer MEDICARE, MEDICAID ==
[~2021-05-13] MED LIST changes: -OMEP-221; +OMEP40CA5
== END ==
LOC: M PAIN 10:15
PROVIDERS: ATTEND Anesthesiology
DX: G54.6 Phantom limb syndrome with pain (principal); Z99.3 Dependence on wheelchair; M25.519 Pain in unspecified shoulder; J44.9 Chronic obstructive pulmonary disease, unspecified; E03.9 Hypothyroidism, unspecified; G47.33 Obstructive sleep apnea (adult) (pediatric); F17.210 Nicotine dependence, cigarettes, uncomplicated; Z86.14 Personal history of Methicillin resistant Staphylococcus aureus infection; Z91.09 Other allergy status, other than to drugs and biological substances; E66.01 Morbid (severe) obesity due to excess calories; Z68.43 Body mass index [BMI] 50.0-59.9, adult; Z79.891 Long term (current) use of opiate analgesic; Z79.899 Other long term (current) drug therapy

== ENCOUNTER → 2021-05-31 | Outpatient (REF) | payer MEDICARE, MEDICAID ==
[~2021-05-31] MED LIST changes: +OMEP-221; -OMEP40CA5
== END ==
LOC: M SFHCPLAZ 16:59
PROVIDERS: ATTEND Physician Assistant
DX: J02.9 Acute pharyngitis, unspecified (principal)
CPT/HCPCS: 87081; 87880; G0463

== ENCOUNTER → 2021-08-24 | Outpatient (CLI) | payer MEDICARE, MEDICAID | LOC: M PAIN 13:45 | PROVIDERS: ATTEND Anesthesiology | DX: M79.18 Myalgia, other site (principal); M25.562 Pain in left knee; M47.816 Spondylosis without myelopathy or radiculopathy, lumbar region; J44.9 Chronic obstructive pulmonary disease, unspecified; R73.03 Prediabetes; E03.9 Hypothyroidism, unspecified; G47.33 Obstructive sleep apnea (adult) (pediatric); F17.210 Nicotine dependence, cigarettes, uncomplicated; Z86.14 Personal history of Methicillin resistant Staphylococcus aureus infection; Z91.09 Other allergy status, other than to drugs and biological substances; E66.01 Morbid (severe) obesity due to excess calories; Z68.42 Body mass index [BMI] 45.0-49.9, adult; Z79.891 Long term (current) use of opiate analgesic; Z79.899 Other long term (current) drug therapy ==

== ENCOUNTER → 2021-08-25 | Outpatient (CLI) | payer MEDICARE, MEDICAID ==
--- NOTE | 2021-08-25 15:32 | DEXAMM ---
INDICATION: DISORDER OF BONE, UNSPECIFIED. COMPARISON: 03/14/2017. TECHNIQUE: Bone density was measured using dual-energy x-ray absorptiometry (DEXA). FINDINGS: AP SPINE L1-L4 BMD 1.090 g/cm2 Young Adult T-Score -0.8 Age Matched Z-Score 0.4. LT FEMUR, TOTAL BMD 0.893 g/cm2 Young Adult T-Score -0.9 Age Matched Z-Score 0.0. LT NECK BMD 0.858 g/cm2 Young Adult T-Score -1.3 Age Matched Z-Score 0.0. RT FEMUR, TOTAL BMD 0.521 g/cm2 Young Adult T-Score -3.9 Age Matched Z-Score -2.9. RT NECK BMD 0.661 g/cm2 Young Adult T-Score -2.7 Age Matched Z-Score -1.5. IMPRESSION: There is normal bone density of the spine. There is low bone density of the left hip. There is osteoporosis of the right hip. The density of the spine has increased 0.5% since the initial exam on 03/14/2017. The density of the right hip has increased 4.6% since the initial exam on 03/14/2017. FOLLOW-UP: Recommendation for the next bone density exam: 2 years. <Electronically signed by Allen Hoyt > 08/25/21 1522
== END ==
LOC: M WHC 12:13
PROVIDERS: ATTEND Nurse Practitioner Family
DX: M85.88 Other specified disorders of bone density and structure, other site (principal); E03.9 Hypothyroidism, unspecified; E78.2 Mixed hyperlipidemia; R73.03 Prediabetes

== ENCOUNTER → 2021-08-25 | Outpatient (CLI) | payer MEDICARE, OTHER ==
[2021-08-25 17:52] LABS: BILIRUBIN,TOTAL 0.5 MG/DL (0.2-1.0); CALCIUM LEVEL 9.4 MG/DL (8.8-10.2); CHOLESTEROL RISK RATIO 3.242 (<5); CREATININE FOR GFR 1.04 MG/DL (0.55-1.30); FREE T4 1.57 NG/DL (0.76-1.46); GLOMERULAR FILTRATION RATE 57.5 (>45); THYROID STIMULATING HORMONE 0.047 uIU/ML (0.358-3.740); TOTAL PROTEIN 6.6 GM/DL (6.4-8.2)
[2021-08-25 19:42] LABS: HEMOGLOBIN A1c 5.7 %
== END ==
LOC: M PLALAB 12:42
PROVIDERS: ATTEND Nurse Practitioner Family
DX: E03.9 Hypothyroidism, unspecified (principal); E78.2 Mixed hyperlipidemia; R73.03 Prediabetes

== ENCOUNTER → 2021-09-21 | Outpatient (CLI) | payer MEDICARE, OTHER ==
[2021-09-21 10:26] LABS: BASO # 0.1 10^3/uL (0.0-0.2); BASO % 0.8 % (0.0-1.0); EOS # 0.6 10^3/uL (0.0-0.5); EOS % 6.7 % (0.0-3.0); HEMATOCRIT 44.7 % (36.0-47.0); HEMOGLOBIN 14.2 g/dl (12.0-15.5); LYMPH # 2.6 10^3/uL (1.5-5.0); LYMPH % 29.2 % (24.0-44.0); MEAN CORPUSCULAR HGB CONC 31.8 g/dl (32.0-36.5); MEAN CORPUSCULAR VOLUME 97.6 fl (80.0-96.0); MONO # 0.7 10^3/uL (0.0-0.8); MONO % 7.6 % (2.0-8.0); NEUTROPHILS % 55.5 % (36.0-66.0); PLATELET COUNT, AUTOMATED 295 10^3/uL (150-450); RED BLOOD COUNT 4.58 10^6/uL (4.00-5.40)
[2021-09-21 11:00] LABS: ALBUMIN 3.3 GM/DL (3.2-5.2); ALT/SGPT 14 U/L (12-78); BILIRUBIN,TOTAL 0.5 MG/DL (0.2-1.0); BLOOD UREA NITROGEN 15 MG/DL (7-18); CALCIUM LEVEL 9.3 MG/DL (8.8-10.2); CARBON DIOXIDE LEVEL 31 MEQ/L (21-32); CHLORIDE LEVEL 108 MEQ/L (98-107); GLOMERULAR FILTRATION RATE > 60.0 (>45); GLUCOSE, FASTING 93 MG/DL (70-100); POTASSIUM SERUM 4.9 MEQ/L (3.5-5.1); SODIUM LEVEL 143 MEQ/L (136-145); TOTAL PROTEIN 6.8 GM/DL (6.4-8.2)
== END ==
LOC: M PLALAB 07:57
PROVIDERS: ATTEND Internal Medicine
DX: M45.7 Ankylosing spondylitis of lumbosacral region (principal)

== ENCOUNTER → 2021-09-21 | Outpatient (CLI) | payer MEDICARE, OTHER ==
[2021-09-28 05:12] LABS: CODEINE, URINE Negative (Cutoff=100); CREATININE, URINE 181.3 mg/dL (20.0-300.0); HYDROCODONE, URINE Negative (Cutoff=100); HYDROMORPHONE CONFIRM, URINE >10000 ng/mL (Cutoff=100); HYDROMORPHONE, URINE Positive (.); MORPHINE, URINE Negative (Cutoff=100); OPIATES, URINE Positive ng/mL (Cutoff=300); OXYCODONE URINE Positive (.); OXYCODONE, URINE CONFIRM >10000 ng/mL (Cutoff=100); OXYCODONE/OXYMORPH, URINE Positive (Cutoff=100); OXYMORPHONE, URINE Positive (.); OXYMORPHONE, URINE CONFIRM 14720 ng/mL (Cutoff=100)
--- NOTE | 2021-10-04 15:26 | REP ---
INDICATION: LT KNEE PAIN. COMPARISON: Prior MRI 12/05/2019 and prior plain film examination 04/30/2013 and 12/01/2019. The prior imaging studies performed in 2019, from an outside institution. TECHNIQUE: 1.0 x [address] helical CT were obtained and reconstructed in both sagittal and coronal planes. FINDINGS: There are irregular geographic areas of mixed density seen in the distal femur, proximal tibia, and patella which are intramedullary. There is no evidence of an acute fracture. There is mild asymmetric patellofemoral joint space narrowing and evidence of mild medial compartmental narrowing with subchondral sclerosis. 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 <Electronically signed by Renny Gann > 10/04/21 [id number]
== END ==
LOC: M PLAIMG 07:52
PROVIDERS: ATTEND Anesthesiology
DX: M25.562 Pain in left knee (principal); M45.7 Ankylosing spondylitis of lumbosacral region; Z79.891 Long term (current) use of opiate analgesic

== ENCOUNTER → 2021-12-21 | Outpatient (CLI) | payer MEDICARE, MEDICAID, OTHER ==
[~2021-12-21] MED LIST changes: -OMEP-221; +OMEP40CA5
== END ==
LOC: M RAD 12:16
PROVIDERS: ATTEND Anesthesiology
DX: M25.552 Pain in left hip (principal)

== ENCOUNTER → 2021-12-30 | Outpatient (CLI) | payer MEDICARE, MEDICAID ==
[2021-12-30 12:57] LABS: FREE T4 1.52 NG/DL (0.76-1.46); THYROID STIMULATING HORMONE 0.076 uIU/ML (0.358-3.740)
== END ==
LOC: M LAB 11:06
PROVIDERS: ATTEND Nurse Practitioner Family
DX: E03.9 Hypothyroidism, unspecified (principal)

== ENCOUNTER → 2022-02-10 | Outpatient (CLI) | payer MEDICARE, MEDICAID | LOC: M RAD 10:02 | PROVIDERS: ATTEND Nurse Practitioner Family | DX: M79.641 Pain in right hand (principal) ==

== ENCOUNTER → 2022-03-09 | Outpatient (CLI) | payer MEDICARE, MEDICAID | LOC: M PAIN 13:30 | PROVIDERS: ATTEND Anesthesiology | DX: M54.50 Low back pain, unspecified (principal); G89.29 Other chronic pain; M25.552 Pain in left hip; M17.12 Unilateral primary osteoarthritis, left knee; F17.210 Nicotine dependence, cigarettes, uncomplicated; Z86.14 Personal history of Methicillin resistant Staphylococcus aureus infection; Z79.891 Long term (current) use of opiate analgesic; Z79.899 Other long term (current) drug therapy ==

== ENCOUNTER → 2022-06-07 | Outpatient (CLI) | payer MEDICARE, MEDICAID | LOC: M PAIN 09:45 | PROVIDERS: ATTEND Anesthesiology | DX: M54.50 Low back pain, unspecified (principal); M25.552 Pain in left hip; M45.9 Ankylosing spondylitis of unspecified sites in spine; J44.9 Chronic obstructive pulmonary disease, unspecified; N18.2 Chronic kidney disease, stage 2 (mild); R73.03 Prediabetes; E03.9 Hypothyroidism, unspecified; G47.33 Obstructive sleep apnea (adult) (pediatric); Z89.611 Acquired absence of right leg above knee; Z90.5 Acquired absence of kidney; M87.9 Osteonecrosis, unspecified; N39.0 Urinary tract infection, site not specified; F17.210 Nicotine dependence, cigarettes, uncomplicated; Z79.899 Other long term (current) drug therapy; Z85.828 Personal history of other malignant neoplasm of skin; Z91.048 Other nonmedicinal substance allergy status ==

== ENCOUNTER → 2022-07-12 | Outpatient (CLI) | payer MEDICARE ==
[2022-07-12 12:26] LABS: CREATININE FOR GFR 1.02 MG/DL (0.55-1.30); GLOMERULAR FILTRATION RATE 58.7 (>45)
== END ==
LOC: M LAB 11:03
PROVIDERS: ATTEND Anesthesiology
DX: M25.552 Pain in left hip (principal)

== ENCOUNTER → 2022-07-14 | Outpatient (CLI) | payer MEDICARE ==
[~2022-07-14] MED LIST changes: +PROHANCE 279.3MG/ML 15ML VIAL As Ordered ONE
== END ==
LOC: M RAD 09:01
PROVIDERS: ATTEND Anesthesiology
DX: M25.552 Pain in left hip (principal)
CPT/HCPCS: 73723; A9576

== ENCOUNTER → 2022-08-04 | Outpatient (CLI) | payer MEDICARE, MEDICAID ==
[~2022-08-04] MED LIST changes: -PROHANCE 279.3MG/ML 15ML VIAL As Ordered ONE
== END ==
LOC: M PAIN 14:30
PROVIDERS: ATTEND Anesthesiology
DX: M54.50 Low back pain, unspecified (principal); M79.606 Pain in leg, unspecified; M25.559 Pain in unspecified hip; G89.29 Other chronic pain; J44.9 Chronic obstructive pulmonary disease, unspecified; R73.03 Prediabetes; E03.9 Hypothyroidism, unspecified; G47.33 Obstructive sleep apnea (adult) (pediatric); F17.210 Nicotine dependence, cigarettes, uncomplicated; Z86.19 Personal history of other infectious and parasitic diseases; Z86.14 Personal history of Methicillin resistant Staphylococcus aureus infection; Z91.09 Other allergy status, other than to drugs and biological substances; Z79.890 Hormone replacement therapy; Z79.891 Long term (current) use of opiate analgesic; Z79.899 Other long term (current) drug therapy

== ENCOUNTER → 2022-10-11 | Outpatient (CLI) | payer MEDICARE, MEDICAID | LOC: M PAIN 13:30 → M TMPAIN 13:30 | PROVIDERS: ATTEND Anesthesiology | DX: M54.50 Low back pain, unspecified (principal); M25.559 Pain in unspecified hip; M25.569 Pain in unspecified knee; J44.9 Chronic obstructive pulmonary disease, unspecified; R73.03 Prediabetes; E03.9 Hypothyroidism, unspecified; G47.33 Obstructive sleep apnea (adult) (pediatric); F17.210 Nicotine dependence, cigarettes, uncomplicated; Z86.19 Personal history of other infectious and parasitic diseases; Z86.14 Personal history of Methicillin resistant Staphylococcus aureus infection; Z96.651 Presence of right artificial knee joint; Z91.09 Other allergy status, other than to drugs and biological substances; Z79.890 Hormone replacement therapy; Z79.891 Long term (current) use of opiate analgesic; Z79.899 Other long term (current) drug therapy ==

== ENCOUNTER → 2022-10-23 | Outpatient (CLI) | payer MEDICARE | LOC: M WHC 08:26 | PROVIDERS: ATTEND Nurse Practitioner Family | DX: Z12.31 Encounter for screening mammogram for malignant neoplasm of breast (principal) ==

== ENCOUNTER → 2022-11-01 | Outpatient (CLI) | payer MEDICARE, MEDICAID | LOC: M RAD 12:39 | PROVIDERS: ATTEND Nurse Practitioner Family | DX: F17.210 Nicotine dependence, cigarettes, uncomplicated (principal) ==

== ENCOUNTER → 2022-11-27 | Outpatient (CLI) | payer MEDICARE, MEDICAID | LOC: M PAIN 09:15 | PROVIDERS: ATTEND Nurse Practitioner Family | DX: M54.50 Low back pain, unspecified (principal); G89.29 Other chronic pain; M25.559 Pain in unspecified hip; M25.569 Pain in unspecified knee; J44.9 Chronic obstructive pulmonary disease, unspecified; R73.03 Prediabetes; E03.9 Hypothyroidism, unspecified; G47.33 Obstructive sleep apnea (adult) (pediatric); F17.210 Nicotine dependence, cigarettes, uncomplicated; Z86.14 Personal history of Methicillin resistant Staphylococcus aureus infection; Z96.651 Presence of right artificial knee joint; Z91.09 Other allergy status, other than to drugs and biological substances; Z79.890 Hormone replacement therapy; Z79.891 Long term (current) use of opiate analgesic; Z79.899 Other long term (current) drug therapy ==

== ENCOUNTER → 2022-12-28 | Outpatient (CLI) | payer MEDICARE, MEDICAID | LOC: M RAD 13:13 | PROVIDERS: ATTEND Internal Medicine Nephrology | DX: N28.1 Cyst of kidney, acquired (principal); Z90.49 Acquired absence of other specified parts of digestive tract; Z90.5 Acquired absence of kidney ==

== ENCOUNTER → 2023-01-26 | Outpatient (CLI) | payer MEDICARE, MEDICAID | LOC: M PAIN 10:30 | PROVIDERS: ATTEND Nurse Practitioner Family | DX: M47.816 Spondylosis without myelopathy or radiculopathy, lumbar region (principal); J44.9 Chronic obstructive pulmonary disease, unspecified; N18.2 Chronic kidney disease, stage 2 (mild); R73.03 Prediabetes; E03.9 Hypothyroidism, unspecified; G47.33 Obstructive sleep apnea (adult) (pediatric); Z89.611 Acquired absence of right leg above knee; F17.210 Nicotine dependence, cigarettes, uncomplicated; Z79.890 Hormone replacement therapy; Z79.899 Other long term (current) drug therapy; Z91.048 Other nonmedicinal substance allergy status ==

== ENCOUNTER → 2023-04-13 | Outpatient (CLI) | payer MEDICARE, MEDICAID | LOC: M PAIN 10:00 | PROVIDERS: ATTEND Nurse Practitioner Family | DX: M54.50 Low back pain, unspecified (principal); M47.816 Spondylosis without myelopathy or radiculopathy, lumbar region; G89.29 Other chronic pain; J44.9 Chronic obstructive pulmonary disease, unspecified; R73.03 Prediabetes; E03.9 Hypothyroidism, unspecified; G47.33 Obstructive sleep apnea (adult) (pediatric); F17.210 Nicotine dependence, cigarettes, uncomplicated; Z86.59 Personal history of other mental and behavioral disorders; Z91.09 Other allergy status, other than to drugs and biological substances; Z79.890 Hormone replacement therapy; Z79.899 Other long term (current) drug therapy ==

== ENCOUNTER → 2023-06-25 | Outpatient (CLI) | payer MEDICARE, MEDICAID | LOC: M RAD 15:19 | PROVIDERS: ATTEND Nurse Practitioner Family | DX: M17.12 Unilateral primary osteoarthritis, left knee (principal) ==

== ENCOUNTER → 2023-11-28 | Outpatient (CLI) | payer MEDICARE, MEDICAID ==
[~2023-11-28] MED LIST changes: +ATOR40TA75 PO; +GABA-284 PO; +HYDR-3363 PO; +OXYB-54 PO; +PANT40TA29 PO; +POTA10808 PO; +SYNT88TA2 PO; +TALT80IN5 SC; +XTAM27CA PO
== END ==
LOC: M PAIN 11:30
PROVIDERS: ATTEND Anesthesiology
DX: M51.16 Intervertebral disc disorders with radiculopathy, lumbar region (principal); J44.9 Chronic obstructive pulmonary disease, unspecified; N18.2 Chronic kidney disease, stage 2 (mild); R73.02 Impaired glucose tolerance (oral); E03.9 Hypothyroidism, unspecified; G47.33 Obstructive sleep apnea (adult) (pediatric); F17.210 Nicotine dependence, cigarettes, uncomplicated; Z79.890 Hormone replacement therapy; Z79.899 Other long term (current) drug therapy; Z91.048 Other nonmedicinal substance allergy status

== ENCOUNTER → 2024-03-21 | Outpatient (CLI) | payer MEDICARE, MEDICAID | LOC: M PAIN 09:30 | PROVIDERS: ATTEND Nurse Practitioner Family | DX: M47.816 Spondylosis without myelopathy or radiculopathy, lumbar region (principal); Z79.891 Long term (current) use of opiate analgesic; G89.29 Other chronic pain; J44.9 Chronic obstructive pulmonary disease, unspecified; N18.2 Chronic kidney disease, stage 2 (mild); R73.03 Prediabetes; E03.9 Hypothyroidism, unspecified; G47.33 Obstructive sleep apnea (adult) (pediatric); F17.210 Nicotine dependence, cigarettes, uncomplicated; Z79.899 Other long term (current) drug therapy; Z91.048 Other nonmedicinal substance allergy status ==

== ENCOUNTER → 2024-06-26 | Outpatient (CLI) | payer MEDICARE, MEDICAID ==
[~2024-06-26] MED LIST changes: +GABA-1490; -GABA600T4
== END ==
LOC: M PAIN 09:30
PROVIDERS: ATTEND Nurse Practitioner Family
DX: M51.16 Intervertebral disc disorders with radiculopathy, lumbar region (principal); G89.29 Other chronic pain; J44.9 Chronic obstructive pulmonary disease, unspecified; N18.2 Chronic kidney disease, stage 2 (mild); R73.03 Prediabetes; E03.9 Hypothyroidism, unspecified; G47.33 Obstructive sleep apnea (adult) (pediatric); F17.210 Nicotine dependence, cigarettes, uncomplicated; Z89.611 Acquired absence of right leg above knee; Z79.890 Hormone replacement therapy; Z79.899 Other long term (current) drug therapy; Z91.048 Other nonmedicinal substance allergy status

== ENCOUNTER → 2024-07-15 | Outpatient (CLI) | payer MEDICARE, MEDICAID | LOC: M PAIN 11:15 | PROVIDERS: ATTEND Nurse Practitioner Family | DX: M51.16 Intervertebral disc disorders with radiculopathy, lumbar region (principal); G89.29 Other chronic pain; J44.9 Chronic obstructive pulmonary disease, unspecified; N18.2 Chronic kidney disease, stage 2 (mild); R73.03 Prediabetes; E03.9 Hypothyroidism, unspecified; G47.33 Obstructive sleep apnea (adult) (pediatric); Z89.611 Acquired absence of right leg above knee; F17.210 Nicotine dependence, cigarettes, uncomplicated; Z79.891 Long term (current) use of opiate analgesic; Z79.890 Hormone replacement therapy; Z79.899 Other long term (current) drug therapy; Z91.048 Other nonmedicinal substance allergy status ==

== ENCOUNTER → 2024-11-07 | Outpatient (CLI) | payer MEDICARE, MEDICAID ==
[~2024-11-07] MED LIST changes: -POTA10808 PO; +POTA10809 PO
== END ==
LOC: M PAIN 16:00
PROVIDERS: ATTEND Anesthesiology
DX: M47.816 Spondylosis without myelopathy or radiculopathy, lumbar region (principal); M51.16 Intervertebral disc disorders with radiculopathy, lumbar region; G89.29 Other chronic pain; J44.9 Chronic obstructive pulmonary disease, unspecified; N18.2 Chronic kidney disease, stage 2 (mild); E03.9 Hypothyroidism, unspecified; R73.03 Prediabetes; F17.210 Nicotine dependence, cigarettes, uncomplicated; Z79.890 Hormone replacement therapy; Z79.899 Other long term (current) drug therapy; Z91.048 Other nonmedicinal substance allergy status

== ENCOUNTER → 2024-11-21 | Outpatient (CLI) | payer MEDICARE, MEDICAID | LOC: M PAIN 13:00 | PROVIDERS: ATTEND Nurse Practitioner Family | DX: M51.16 Intervertebral disc disorders with radiculopathy, lumbar region (principal); G89.29 Other chronic pain; J44.9 Chronic obstructive pulmonary disease, unspecified; N18.30 Chronic kidney disease, stage 3 unspecified; E03.9 Hypothyroidism, unspecified; F17.210 Nicotine dependence, cigarettes, uncomplicated; Z79.899 Other long term (current) drug therapy; Z91.048 Other nonmedicinal substance allergy status ==

== ENCOUNTER → 2024-11-28 | Outpatient (CLI) | payer MEDICARE, MEDICAID | LOC: M PAIN 09:30 | PROVIDERS: ATTEND Anesthesiology | DX: M47.816 Spondylosis without myelopathy or radiculopathy, lumbar region (principal); J44.9 Chronic obstructive pulmonary disease, unspecified; N18.30 Chronic kidney disease, stage 3 unspecified; R73.03 Prediabetes; G47.33 Obstructive sleep apnea (adult) (pediatric); F17.210 Nicotine dependence, cigarettes, uncomplicated; Z79.899 Other long term (current) drug therapy; Z91.048 Other nonmedicinal substance allergy status ==

== ENCOUNTER → 2024-12-09 | Outpatient (CLI) | payer MEDICARE, MEDICAID | LOC: M PAIN 14:00 | PROVIDERS: ATTEND Anesthesiology | DX: M51.16 Intervertebral disc disorders with radiculopathy, lumbar region (principal); F17.210 Nicotine dependence, cigarettes, uncomplicated; Z79.891 Long term (current) use of opiate analgesic; Z79.899 Other long term (current) drug therapy; Z85.828 Personal history of other malignant neoplasm of skin; Z91.048 Other nonmedicinal substance allergy status ==

== ENCOUNTER → 2024-12-18 | Outpatient (CLI) | payer MEDICARE, MEDICAID | LOC: M WHC 10:26 | PROVIDERS: ATTEND Nurse Practitioner Family | DX: Z13.820 Encounter for screening for osteoporosis (principal); M81.0 Age-related osteoporosis without current pathological fracture; M85.851 Other specified disorders of bone density and structure, right thigh; M85.852 Other specified disorders of bone density and structure, left thigh ==

== ENCOUNTER → 2025-02-04 | Outpatient (CLI) | payer MEDICARE, MEDICAID | LOC: M SLEEP 20:00 | PROVIDERS: ATTEND Internal Medicine Pulmonary Disease | DX: G47.33 Obstructive sleep apnea (adult) (pediatric) (principal) ==

== ENCOUNTER → 2025-02-17 | Outpatient (CLI) | payer MEDICARE, MEDICAID | LOC: M RAD 12:59 | PROVIDERS: ATTEND Nurse Practitioner Family | DX: F17.210 Nicotine dependence, cigarettes, uncomplicated (principal) ==

== ENCOUNTER → 2025-05-06 | Outpatient (REF) | payer MEDICARE, MEDICAID ==
[2025-05-06 18:50] LABS: ALT/SGPT 16 U/L (7.0-40); AST/SGOT 18 U/L (<34); C REACTIVE PROTEIN QUANTITATIV 1.36 MG/DL (<1.0); CALCIUM LEVEL 9.0 MG/DL (8.3-10.6); CARBON DIOXIDE LEVEL 33 MMOL/L (20-31); CHLORIDE LEVEL 104 MMOL/L (98-107); CREATININE FOR GFR 0.96 MG/DL (0.55-1.30); GLOMERULAR FILTRATION RATE 66.1 (>45); POTASSIUM SERUM 4.5 MMOL/L (3.5-5.1); SODIUM LEVEL 145 MMOL/L (136-145)
[2025-05-06 18:52] LABS: BASO # 0.1 10^3/uL (0.0-0.2); BASO % 0.8 % (0.0-1.0); EOS # 0.6 10^3/uL (0.0-0.5); EOS % 5.8 % (0.0-3.0); LYMPH # 3.1 10^3/uL (1.5-5.0); LYMPH % 30.7 % (24.0-44.0); MONO # 0.6 10^3/uL (0.0-0.8); MONO % 5.9 % (2.0-8.0); NEUTROPHILS # 5.8 10^3/uL (1.5-8.5); NEUTROPHILS % 56.5 % (36.0-66.0); PLATELET COUNT, AUTOMATED 330 10^3/uL (150-450)
[2025-05-06 19:02] LABS: ERYTHROCYTE SEDIMENTATION RATE 56 mm/hr (0-30)
[2025-05-06 19:33] LABS: HEPATITIS C VIRUS ABY INDEX 0.02 INDEX (<0.8)
== END ==
LOC: M SFHCRHEU 14:50
PROVIDERS: ATTEND Internal Medicine Rheumatology
DX: M45.0 Ankylosing spondylitis of multiple sites in spine (principal); Z11.59 Encounter for screening for other viral diseases